=== PATIENT | male | born 1970 | race Caucasian/White ===

== ENCOUNTER 2018-03-11 09:22 | Inpatient (IN) | payer OTHER ==
[2018-03-11 09:58] VITALS: BMI 26.9
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
[2018-03-11] MEDS ORDERED: MAGNESIUM HYDROX 2400MG/30ML ORAL SUSPENSION 30 ML CUP PO PRN (13:50)
[2018-03-11] MEDS ORDERED: hydrOXYzine PAMOATE 25 MG CAPSULE (FP) PO PRN (13:50)
[2018-03-11] MEDS ORDERED: guaiFENesin/D-METHORPHAN HB 10 ML UNIT-DOSE CUPS PO PRN (13:50)
[2018-03-11] MEDS ORDERED: MAG HYDROX/AL HYDROX/SIMETH 30 ML UNIT-DOSE CUP PO PRN (13:50)
[2018-03-11] MEDS ORDERED: MENTHOL/PHENOL 1 EACH UD MM PRN (13:50)
[2018-03-11] MEDS ORDERED: LOPERAMIDE HCL 2 MG CAPSULE PO PRN (13:50)
[2018-03-11] MEDS ORDERED: chlordiazePOXIDE HCL 25 MG CAPSULE PO PRN (13:50)
[2018-03-11] MEDS ORDERED: P-EPHED 60MG/TRIPROLIDI 2.5MG TABLET PO PRN (13:50)
[2018-03-11] MEDS ORDERED: MAGNESIUM CITRATE 300 ML BOTTLE PO PRN (13:50)
[2018-03-11] MEDS ORDERED: ALBUTEROL SO4 8 GM HFA INHALER IH PRN (14:00)
[2018-03-11] MEDS ORDERED: METHADONE HCL 10 MG TABLET (FOR DETOX USE ONLY) PO ONE ×2 (14:15→23:00)
[2018-03-11 16:56] LABS: URINE APPEARANCE CLEAR; URINE BILIRUBIN NEGATIVE (<2.0 mg/dL); URINE COLOR YELLOW; URINE GLUCOSE (UA) NEGATIVE (NEGATIVE); URINE KETONE NEGATIVE (NEGATIVE); URINE LEUK ESTERASE NEGATIVE (NEGATIVE); URINE NITRITE NEGATIVE (NEGATIVE); URINE PROTEIN NEGATIVE (NEGATIVE); URINE UROBILINOGEN NEGATIVE mg/dL (0.2-1.0)
[2018-03-11] MEDS: chlordiazePOXIDE HCL 25 MG CAPSULE PO SCH ×2 (17:42→22:42)
[2018-03-11] MEDS: IBUPROFEN 400 MG TABLET (FP) PO PRN (18:24)
[2018-03-11] MEDS ORDERED: MELATONIN 5 MG TABLETS PO PRN (22:00)
[2018-03-11] MEDS: CYCLOBENZAPRINE HCL 10 MG TABLET (FP) PO PRN (22:42)
[2018-03-11] MEDS: cloNIDine HCL 0.1 MG TABLET PO SCH (22:42)
[2018-03-11] MEDS: THIAMINE HCL 100 MG TABLET (FP) PO SCH (22:42)
[2018-03-12] MEDS: chlordiazePOXIDE HCL 25 MG CAPSULE PO SCH ×4 (05:17→22:09)
[2018-03-12] MEDS ORDERED: METHADONE HCL 10 MG TABLET (FOR DETOX USE ONLY) PO SCH (10:00)
[2018-03-12 10:07] LABS: HEMATOCRIT 36.8 % (35.4-49); HEMOGLOBIN 12.1 GM/dL (11.7-16.9); MCH 27.4 pg (25.7-33.7); MCHC 32.8 g/dl (32.0-35.9); MEAN CELL VOLUME 83.4 fl (80-96); MEAN PLT VOLUME 9.5 fl (7.5-11.1); PLATELET COUNT 165 K/MM3 (134-434); RBC 4.42 M/mm3 (4.00-5.60); RDW 15.2 % (11.9-15.9); WHITE BLOOD COUNT 6.3 K/mm3 (4.0-10.0)
[2018-03-12 10:12] LABS: CHLORIDE 105 mmol/L (98-107); POTASSIUM 3.8 mmol/L (3.5-5.1); SODIUM 141 mmol/L (136-145)
[2018-03-12] MEDS: PRENATAL VITAMINS W/ FOLIC ACID TABLET (FP) PO SCH (10:14)
[2018-03-12] MEDS: cloNIDine HCL 0.1 MG TABLET PO SCH ×2 (10:14→22:09)
[2018-03-12] MEDS: ACETAMINOPHEN 325 MG TABLET (FP) PO PRN (10:15)
[2018-03-12 10:19] LABS: ALBUMIN 3.5 g/dl (3.4-5.0); ALK PHOS 307 U/L (45-117); ANION GAP 10 MMOL/L (8-16); BILIRUBIN,TOTAL 0.4 mg/dL (0.2-1.0); BLOOD UREA NITROGEN 21 mg/dL (7-18); CALCIUM 8.8 mg/dL (8.5-10.1); CO2 26 mmol/L (21-32); CREATININE 0.7 mg/dL (0.7-1.3); GLUCOSE,RANDOM 118 mg/dL (74-106); SGOT/AST 82 U/L (15-37); SGPT/ALT 170 U/L (12-78); TOT PROT 7.4 g/dl (6.4-8.2)
--- NOTE | 2018-03-12 10:44 | EKG ---
Test Reason : Blood Pressure : / mmHG Vent. Rate : 078 BPM Atrial Rate : 078 BPM P-R Int : 114 ms QRS Dur : 086 ms QT Int : 406 ms P-R-T Axes : 030 033 031 degrees QTc Int : 462 ms NORMAL SINUS RHYTHM NORMAL ECG NO PREVIOUS ECGS AVAILABLE Confirmed by SULLY HENSON, SCARLETT ([id number]) on 03/12/2018 10:44:02 AM Referred By: Confirmed By:SCARLETT VIRK MD
--- NOTE | 2018-03-12 13:34 | EKG ---
Test Reason : Blood Pressure : / mmHG Vent. Rate : 072 BPM Atrial Rate : 072 BPM P-R Int : 112 ms QRS Dur : 084 ms QT Int : 394 ms P-R-T Axes : 060 063 055 degrees QTc Int : 431 ms NORMAL SINUS RHYTHM WITH SINUS ARRHYTHMIA NORMAL ECG WHEN COMPARED WITH ECG OF 11-MAR-2018 14:27, NO SIGNIFICANT CHANGE WAS FOUND Confirmed by SCARLETT VIRK MD ([id number]) on 03/12/2018 1:33:38 PM Referred By: Confirmed By:SCARLETT VIRK MD
--- NOTE | 2018-03-12 15:14 | PN ---
[facility] CIWA - CIWA Score Nausea/Vomitin-No Nausea/No Vomiting Muscle Tremors: 3 Anxiety: 3 Agitation: 3 Paroxysmal Sweats: 3 Orientation: 0-Oriented Tacttile Disturbances: 2-Mild Itch/Numbness/Burn Auditory Disturbances: 0-None Visual Disturbances: 3-Moderate Sensitivity Headache: 0-None Present CIWA-Ar Total Score: 17 S COWS - Scale Resting Pulse: 0= [place] 80 or Below Sweatin= Chills/Flushing Restless Observation: 1= Difficult to Sit Still Pupil Size: 0= Normal to Room Light Bone or Joint Aches: 2= Severe Diffuse Aches Runny Nose/ Eye Tearin= None GI Upset > 30mins: 0= None Tremor Observation of Outstretched Hands: 2= Slight Tremor Visible Yawning Observation: 1= 1-2x During Session Anxiety or Irritability: 2=Irritable/Anxious Goose Flesh Skin: 3=Piloerection COWS Score: 12 S Progress Note (SOAP) Subjective: Body Aches, Sweating, Fatigue, Constipation, Tremors. Objective: PATIENT A & O X 3. NO ACUTE DISTRESS. 03/12/18 15:13 Vital Signs Temperature 97.9 F 03/12/18 14:28 Pulse Rate 76 03/12/18 14:28 Respiratory Rate 18 03/12/18 14:28 Blood Pressure 100/71 03/12/18 14:28 O2 Sat by Pulse Oximetry (%) Laboratory Tests 03/11/18 03/11/18 03/12/18 12:40 14:51 06:10 WBC 6.3 RBC 4.42 Hgb 12.1 Hct 36.8 MCV 83.4 MCH 27.4 MCHC 32.8 RDW 15.2 Plt Count 165 MPV 9.5 Sodium Potassium Chloride Carbon Dioxide Anion Gap BUN Creatinine Creat Clearance w eGFR Random Glucose Calcium Total Bilirubin AST ALT Alkaline Phosphatase Total Protein Albumin Urine Color Yellow Urine Appearance Clear Urine pH 5.0 Ur Specific [place] 1.018 Urine Protein Negative Urine Glucose (UA) Negative Urine Ketones Negative Urine Blood Negative Urine Nitrite Negative Urine Bilirubin Negative Urine Urobilinogen Negative Ur Leukocyte Esterase Negative RPR Titer HIV 1&2 Antibody Screen Negative HIV P24 Antigen Negative 03/12/18 03/12/18 06:10 06:10 WBC RBC Hgb Hct MCV MCH MCHC RDW Plt Count MPV Sodium 141 Potassium 3.8 Chloride 105 Carbon Dioxide 26 Anion Gap 10 BUN 21 H Creatinine 0.7 Creat Clearance w eGFR > 60 Random Glucose 118 H D Calcium 8.8 Total Bilirubin 0.4 AST 82 H D ALT 170 H D Alkaline Phosphatase 307 H Total Protein 7.4 Albumin 3.5 Urine Color Urine Appearance Urine pH Ur Specific [place] Urine Protein Urine Glucose (UA) Urine Ketones Urine Blood Urine Nitrite Urine Bilirubin Urine Urobilinogen Ur Leukocyte Esterase RPR Titer Nonreactive HIV 1&2 Antibody Screen HIV P24 Antigen LABS NOTED. Assessment: 03/12/18 15:14 WITHDRAWAL SYMPTOMS. Plan: CONTINUED ETOX. INCREASE DAILY PO FLUID INTAKE. HEPATIC FUNCTION PANEL ON 03/14/2018 FOR ABNORMAL ADMISSION HEPATIC FUNCTION VALUES.
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
[2018-03-12] MEDS: THIAMINE HCL 100 MG TABLET (FP) PO SCH (22:09)
[2018-03-12] MEDS: MIRTAZAPINE 15 MG TABLET (FP) PO SCH (22:09)
[2018-03-12] MEDS: CYCLOBENZAPRINE HCL 10 MG TABLET (FP) PO PRN (22:10)
[2018-03-13] MEDS: chlordiazePOXIDE HCL 25 MG CAPSULE PO SCH ×2 (05:12→10:14)
[2018-03-13] MEDS: METHADONE HCL 5 MG TABLET (FOR DETOX USE ONLY) PO SCH (10:14)
[2018-03-13] MEDS: cloNIDine HCL 0.1 MG TABLET PO SCH ×2 (10:14→22:21)
[2018-03-13] MEDS: LURASIDONE HCL 40 MG TABLET PO SCH (10:14)
[2018-03-13] MEDS: PRENATAL VITAMINS W/ FOLIC ACID TABLET (FP) PO SCH (10:15)
[2018-03-13] MEDS ORDERED: RANITIDINE HCL 150 MG TABLET (FP) PO ONE (15:26)
--- NOTE | 2018-03-13 15:29 | PN ---
[facility] CIWA - CIWA Score Nausea/Vomitin-No Nausea/No Vomiting Muscle Tremors: 3 Anxiety: 4-Mod. Anxious/Guarded Agitation: 3 Paroxysmal Sweats: No Perspiration Orientation: 2-Disoriented Date<2 days Tacttile Disturbances: 2-Mild Itch/Numbness/Burn Auditory Disturbances: 0-None Visual Disturbances: 0-None Headache: 0-None Present CIWA-Ar Total Score: 14 BHS COWS - Scale Resting Pulse: 1= [place] 81-100 Sweatin= No chills or Flushing Restless Observation: 1= Difficult to Sit Still Pupil Size: 0= Normal to Room Light Bone or Joint Aches: 2= Severe Diffuse Aches Runny Nose/ Eye Tearin= Nasal Congestion GI Upset > 30mins: 0= None Tremor Observation of Outstretched Hands: 2= Slight Tremor Visible Yawning Observation: 1= 1-2x During Session Anxiety or Irritability: 2=Irritable/Anxious Goose Flesh Skin: 3=Piloerection COWS Score: 13 S Progress Note (SOAP) Subjective: Fatigue, Tremors, Body Aches. Objective: PATIENT A & O X 2 (UNCERTAIN ABOUT CURRENT DAY / DATE). PATIENT OBSERVED AMBULATING ON UNIT. NO ACUTE DISTRESS. 03/13/18 15:28 Vital Signs Temperature 97.3 F L 03/13/18 13:55 Pulse Rate 92 H 03/13/18 13:55 Respiratory Rate 18 03/13/18 13:55 Blood Pressure 100/70 03/13/18 13:55 O2 Sat by Pulse Oximetry (%) Laboratory Tests 03/11/18 03/11/18 03/12/18 12:40 14:51 06:10 WBC 6.3 RBC 4.42 Hgb 12.1 Hct 36.8 MCV 83.4 MCH 27.4 MCHC 32.8 RDW 15.2 Plt Count 165 MPV 9.5 Sodium Potassium Chloride Carbon Dioxide Anion Gap BUN Creatinine Creat Clearance w eGFR Random Glucose Calcium Total Bilirubin AST ALT Alkaline Phosphatase Total Protein Albumin Urine Color Yellow Urine Appearance Clear Urine pH 5.0 Ur Specific [place] 1.018 Urine Protein Negative Urine Glucose (UA) Negative Urine Ketones Negative Urine Blood Negative Urine Nitrite Negative Urine Bilirubin Negative Urine Urobilinogen Negative Ur Leukocyte Esterase Negative RPR Titer HIV 1&2 Antibody Screen Negative HIV P24 Antigen Negative 03/12/18 03/12/18 06:10 06:10 WBC RBC Hgb Hct MCV MCH MCHC RDW Plt Count MPV Sodium 141 Potassium 3.8 Chloride 105 Carbon Dioxide 26 Anion Gap 10 BUN 21 H Creatinine 0.7 Creat Clearance w eGFR > 60 Random Glucose 118 H D Calcium 8.8 Total Bilirubin 0.4 AST 82 H D ALT 170 H D Alkaline Phosphatase 307 H Total Protein 7.4 Albumin 3.5 Urine Color Urine Appearance Urine pH Ur Specific [place] Urine Protein Urine Glucose (UA) Urine Ketones Urine Blood Urine Nitrite Urine Bilirubin Urine Urobilinogen Ur Leukocyte Esterase RPR Titer Nonreactive HIV 1&2 Antibody Screen HIV P24 Antigen LABS NOTED. Assessment: 03/13/18 15:28 WITHDRAWAL SYMPTOMS. Plan: CONTINUE DETOX. INCREASE DAILY PO FLUID INTAKE. HFP FOR TOMORROW AM.
[2018-03-13] MEDS: chlordiazePOXIDE 5 MG CAPSULE PO SCH ×2 (17:22→22:20)
[2018-03-13] MEDS: THIAMINE HCL 100 MG TABLET (FP) PO SCH (22:20)
[2018-03-13] MEDS: MIRTAZAPINE 15 MG TABLET (FP) PO SCH (22:21)
[2018-03-13] MEDS: CYCLOBENZAPRINE HCL 10 MG TABLET (FP) PO PRN (22:21)
[2018-03-14] MEDS: chlordiazePOXIDE 5 MG CAPSULE PO SCH ×2 (05:21→10:09)
[2018-03-14] MEDS: PRENATAL VITAMINS W/ FOLIC ACID TABLET (FP) PO SCH (10:07)
[2018-03-14] MEDS: LURASIDONE HCL 40 MG TABLET PO SCH (10:07)
[2018-03-14] MEDS: cloNIDine HCL 0.1 MG TABLET PO SCH ×2 (10:08→22:18)
[2018-03-14] MEDS: METHADONE HCL 5 MG TABLET (FOR DETOX USE ONLY) PO SCH (10:08)
[2018-03-14] MEDS: RANITIDINE HCL 150 MG TABLET (FP) PO SCH (10:09)
[2018-03-14] MEDS: NICOTINE POLACRILEX 2 MG GUM BUC PRN (10:11)
[2018-03-14 11:07] LABS: ALBUMIN 3.1 g/dl (3.4-5.0)
[2018-03-14 11:12] LABS: ALK PHOS 247 U/L (45-117); BILIRUBIN,DIRECT < 0.2 mg/dL (0.0-0.2); BILIRUBIN,TOTAL 0.3 mg/dL (0.2-1.0); SGPT/ALT 124 U/L (12-78); TOT PROT 7.1 g/dl (6.4-8.2)
[2018-03-14 11:29] LABS: SGOT/AST 45 U/L (15-37)
[2018-03-14] MEDS: chlordiazePOXIDE HCL 10 MG CAPSULE PO SCH ×2 (17:25→22:18)
[2018-03-14] MEDS: IBUPROFEN 400 MG TABLET (FP) PO PRN (17:26)
[2018-03-14] MEDS: ACETAMINOPHEN 325 MG TABLET (FP) PO PRN (20:10)
[2018-03-14] MEDS: CYCLOBENZAPRINE HCL 10 MG TABLET (FP) PO PRN (22:18)
[2018-03-14] MEDS: MIRTAZAPINE 15 MG TABLET (FP) PO SCH (22:18)
[2018-03-14] MEDS: THIAMINE HCL 100 MG TABLET (FP) PO SCH (22:18)
[2018-03-15] MEDS: IBUPROFEN 400 MG TABLET (FP) PO PRN ×2 (01:40→10:04)
[2018-03-15] MEDS: ACETAMINOPHEN 325 MG TABLET (FP) PO PRN ×2 (02:49→14:47)
[2018-03-15] MEDS: chlordiazePOXIDE HCL 10 MG CAPSULE PO SCH ×2 (05:11→10:01)
[2018-03-15] MEDS ORDERED: METHADONE HCL 10 MG TABLET (FOR DETOX USE ONLY) PO SCH (10:00)
[2018-03-15] MEDS: cloNIDine HCL 0.1 MG TABLET PO SCH ×2 (10:01→22:19)
[2018-03-15] MEDS: PRENATAL VITAMINS W/ FOLIC ACID TABLET (FP) PO SCH (10:01)
[2018-03-15] MEDS: LURASIDONE HCL 40 MG TABLET PO SCH (10:01)
[2018-03-15] MEDS: RANITIDINE HCL 150 MG TABLET (FP) PO SCH (10:01)
--- NOTE | 2018-03-15 17:32 | PN ---
BHS Progress Note (SOAP) Subjective: pt states he is feeling fine now- better than when he came in obj: Vital Signs - 24 hr 03/14/18 03/14/18 03/15/18 21:05 22:18 00:30 Temperature 100.7 F H 97.3 F L Pulse Rate 96 H Respiratory 18 18 Rate Blood Pressure 122/76 03/15/18 03/15/18 03/15/18 03:30 06:19 11:15 Temperature 96.1 F L 97.0 F L Pulse Rate 79 91 H Respiratory 18 18 18 Rate Blood Pressure 127/81 117/85 03/15/18 14:44 Temperature 97.3 F L Pulse Rate 85 Respiratory 18 Rate Blood Pressure 111/79 Laboratory Tests 03/11/18 03/11/18 03/12/18 12:40 14:51 06:10 WBC 6.3 RBC 4.42 Hgb 12.1 Hct 36.8 MCV 83.4 MCH 27.4 MCHC 32.8 RDW 15.2 Plt Count 165 MPV 9.5 Sodium Potassium Chloride Carbon Dioxide Anion Gap BUN Creatinine Creat Clearance w eGFR Random Glucose Calcium Total Bilirubin Direct Bilirubin AST ALT Alkaline Phosphatase Total Protein Albumin Urine Color Yellow Urine Appearance Clear Urine pH 5.0 Ur Specific [place] 1.018 Urine Protein Negative Urine Glucose (UA) Negative Urine Ketones Negative Urine Blood Negative Urine Nitrite Negative Urine Bilirubin Negative Urine Urobilinogen Negative Ur Leukocyte Esterase Negative RPR Titer HIV 1&2 Antibody Screen Negative HIV P24 Antigen Negative 03/12/18 03/12/18 03/14/18 06:10 06:10 07:00 WBC RBC Hgb Hct MCV MCH MCHC RDW Plt Count MPV Sodium 141 Potassium 3.8 Chloride 105 Carbon Dioxide 26 Anion Gap 10 BUN 21 H Creatinine 0.7 Creat Clearance w eGFR > 60 Random Glucose 118 H D Calcium 8.8 Total Bilirubin 0.4 0.3 Direct Bilirubin < 0.2 AST 82 H D 45 H D ALT 170 H D 124 H D Alkaline Phosphatase 307 H 247 H D Total Protein 7.4 7.1 Albumin 3.5 3.1 L Urine Color Urine Appearance Urine pH Ur Specific [place] Urine Protein Urine Glucose (UA) Urine Ketones Urine Blood Urine Nitrite Urine Bilirubin Urine Urobilinogen Ur Leukocyte Esterase RPR Titer Nonreactive HIV 1&2 Antibody Screen HIV P24 Antigen increased liver enzymes- decreasing since admission Ass: here for xanax and heroin withdrawal- continue detox protocol
[2018-03-15] MEDS: NICOTINE POLACRILEX 2 MG GUM BUC PRN (17:38)
[2018-03-15] MEDS: THIAMINE HCL 100 MG TABLET (FP) PO SCH (22:19)
[2018-03-15] MEDS: CYCLOBENZAPRINE HCL 10 MG TABLET (FP) PO PRN (22:19)
[2018-03-15] MEDS: MIRTAZAPINE 15 MG TABLET (FP) PO SCH (22:20)
[2018-03-16] MEDS: IBUPROFEN 400 MG TABLET (FP) PO PRN (00:39)
[2018-03-16] MEDS: ACETAMINOPHEN 325 MG TABLET (FP) PO PRN ×2 (04:06→10:10)
[2018-03-16] MEDS ORDERED: METHADONE HCL 5 MG TABLET (FOR DETOX USE ONLY) PO SCH (06:00)
[2018-03-16] MEDS: PRENATAL VITAMINS W/ FOLIC ACID TABLET (FP) PO SCH (10:09)
[2018-03-16] MEDS: cloNIDine HCL 0.1 MG TABLET PO SCH (10:09)
[2018-03-16] MEDS: RANITIDINE HCL 150 MG TABLET (FP) PO SCH (10:09)
[2018-03-16] MEDS: LURASIDONE HCL 40 MG TABLET PO SCH (10:10)
--- NOTE | 2018-03-16 10:49 | PN ---
BHS Progress Note (SOAP) Subjective: without complaints, leaving detox today, would like to go to rehab plan: d/c from detox today
--- NOTE | 2018-03-16 10:52 | DS ---
[facility] Detox Discharge Summary Admission Date: 03/11/18 Discharge Date: 03/16/18 - History Present History: Alcohol Dependence, Cocaine Dependence, Sedative Dependence Additional Comments: 47 years old male with heroin,alcohol,cocaine and xanax dependence,completed alcohol detox-without issues, nicotine dependence hepatitis c bipolar disorder - Physical Exam Results Vital Signs: Vital Signs Temperature 97.2 F L 03/16/18 06:02 Pulse Rate 72 03/16/18 06:02 Respiratory Rate 18 03/16/18 06:02 Blood Pressure 110/74 03/16/18 06:02 O2 Sat by Pulse Oximetry (%) Pertinent Admission Physical Exam Findings: pt states has meds at home- does not need reorder of meds - Treatment Hospital Course: Detox Protocol Followed, Detoxed Safely, Responded well, Discharged Condition Good, Rehab Referral Accepted Patient has Accepted a Rehab Referral to: awaiting rehab beds - Medication Discharge Medications: Ambulatory Orders Albuterol Sulfate Inhaler - [Ventolin HFA Inhaler -] 2 inh PO Q4H PRN #1 inh 12/27 Omeprazole [Prilosec] 40 mg PO DAILY #30 capsule.dr 01/17/15 Gabapentin 800 mg PO Q8H 03/11/18 Lurasidone HCl [Latuda -] 60 mg PO DAILY 03/11/18 Mirtazapine [Remeron -] 15 mg PO HS 03/11/18 Zolpidem Tartrate [Ambien] 10 mg PO HS 03/11/18 - Diagnosis (1) Alcohol dependence with uncomplicated withdrawal Current Visit: Yes Status: Acute (2) Nicotine dependence Current Visit: Yes Status: Acute Qualifiers: Nicotine product type: cigarettes Substance use status: uncomplicated Qualified Code(s): F17.210 - Nicotine dependence, cigarettes, uncomplicated (3) Opioid dependence with withdrawal Current Visit: Yes Status: Acute
[2018-03-16 11:06] VITALS: BP 113/88; PULSE 81; TEMP 97
== END 2018-03-16 12:14 | disposition other institution (70) | DRG 897 ==
LOC: YASAS 09:22 → Y3N 13:47
PROC: HZ2ZZZZ Detoxification Services for Substance Abuse Treatment (ICD-10-PCS; principal; 2018-03-11)
DX: F11.23 Opioid dependence with withdrawal (principal); F14.20 Cocaine dependence, uncomplicated; F10.230 Alcohol dependence with withdrawal, uncomplicated; F13.230 Sedative, hypnotic or anxiolytic dependence with withdrawal, uncomplicated; F17.210 Nicotine dependence, cigarettes, uncomplicated; F31.9 Bipolar disorder, unspecified; F19.24 Other psychoactive substance dependence with psychoactive substance-induced mood disorder; J45.20 Mild intermittent asthma, uncomplicated; E78.00 Pure hypercholesterolemia, unspecified; B18.2 Chronic viral hepatitis C; K21.9 Gastro-esophageal reflux disease without esophagitis; R63.4 Abnormal weight loss; Z68.27 Body mass index [BMI] 27.0-27.9, adult; Z91.5 Personal history of self-harm
CPT/HCPCS: 36415; 80053; 80076; 81003; 85027; 86593; 87389; 93005; 93010; J0735

== ENCOUNTER 2018-08-10 21:13 | Inpatient (IN) | payer OTHER ==
[2018-08-10] MEDS ORDERED: MELATONIN 5 MG TABLETS PO PRN (22:00)
[2018-08-10 22:15] VITALS: BMI 23.0
--- NOTE | 2018-08-10 22:20 | HP ---
CIWA Score Nausea/Vomitin-No Nausea/No Vomiting Muscle Tremors: 1-None Visible, but [place] Anxiety: 4-Mod. Anxious/Guarded Agitation: 4-Moderately Restless Paroxysmal Sweats: 3 Orientation: 2-Disoriented Date<2 days Tacttile Disturbances: 0-None Auditory Disturbances: 0-None Visual Disturbances: 0-None Headache: 3-Moderate CIWA-Ar Total Score: 17 - Admission Criteria OASAS Guidelines: Admission for Medically Managed Detox: Requires at least one of the followin. CIWA greater than 12 2. Seizures within the past 24 hours 3. Delirium tremens within the past 24 hours 4. Hallucinations within the past 24 hours 5. Acute intervention needed for co occurring medical disorder 6. Acute intervention needed for co occurring psychiatric disorder 7. Severe withdrawal that cannot be handled at a lower level of care (continued vomiting, continued diarrhea, abnormal vital signs) requiring intravenous medication and/or fluids 8. Patient presents the following: CIWA greater than 12, Seizures, delirium tremens or hallucinations in the past 12 hours, Acute intervention needed for co -occurring med or psych disorder Admission Criteria Met: Admission criteria met Admission ROS [facility] Chief Complaint: c/o worsening withdrawal sx's. seeking detox txment Allergies/Adverse Reactions: Allergies Allergy/AdvReac Type Severity Reaction Status Date / Time No Known Allergies Allergy Verified 08/10/18 21:54 History of Present Illness: 48 Y.O. 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 CLIENT IS KNOWN TO THIS PROGRAM. SELF REFERRED. PRESENTS WITH C/O WORSENING WITHDRAWAL SX'S. CIWA 17. 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 DENIES ANY CLEAN TIME IN THE PAST YEAR. HE REPORTS HE IS ON METHADONE 70 MG FROM [facility]. DENIES HX/O SI/HI, AVH, SEIZURE D/O. REPORTS HX/O BLACKING OUT/ LAST EPISODE LESS THAN 12 HOURS AGO. LIVES ALONE, SSI, DENIES LEGALS. PMHX- HLD, HEPC, ASTHMA PSYCH- BIPOLAR, DEPRESSION Exam Limitations: No Limitations - Ebola screening Have you traveled outside of the country in the last 21 days: No (N) Have you had contact with anyone from an Ebola affected area: No Do you have a fever: No - Review of Systems Constitutional: Chills, Loss of Appetite, Night Sweats, Changes in sleep EENT: reports: Dental Problems (MISSING TEETH) Respiratory: reports: No Symptoms reported Cardiac: reports: No Symptoms Reported GI: reports: Constipated, Poor Appetite, Poor Fluid Intake : reports: No Symptoms Reported Musculoskeletal: reports: Joint Pain Integumentary: reports: Flushing, Sweating Neuro: reports: No Symptoms reported Endocrine: reports: No Symptoms Reported Hematology: reports: Other Psychiatric: reports: Orientated x3, Anxious, Depressed Other Systems: Reviewed and Negative Patient History - Patient Medical History Hx Anemia: No Hx Asthma: Yes Hx Chronic Obstructive Pulmonary Disease (COPD): No Hx Cancer: No Hx Cardiac Disorders: No Hx Congestive Heart Failure: No Hx Hypertension: No Hx Hypercholesterolemia: Yes (TOOK MED FOR ONE MONTH no med now) Hx Pacemaker: No HX Cerebrovascular Accident: No Hx Seizures: No Hx Dementia: No Hx Diabetes: No Hx Gastrointestinal Disorders: No Hx Liver Disease: Yes Hx Genitourinary Disorders: No Hx Sexually Transmitted Disorders: No Hx Renal Disease (ESRD): No Hx Thyroid Disease: No Hx Human Immunodeficiency Virus (HIV): No Hx Hepatitis C: Yes Hx Depression: Yes Hx Suicide Attempt: No Hx Bipolar Disorder: Yes (SEROQUEL) Hx Schizophrenia: No - Patient Surgical History Past Surgical History: Yes Hx Neurologic Surgery: No Hx Cataract Extraction: No Hx Cardiac Surgery: No Hx Lung Surgery: No Hx Breast Surgery: No Hx Breast Biopsy: No Hx Abdominal Surgery: No Hx Appendectomy: No Hx Cholecystectomy: No Hx Genitourinary Surgery: No Hx Section: No Hx Orthopedic Surgery: No Other Surgical History: LEFT ORBIT WITH METAL PLATE IN 1992 Anesthesia Reaction: No - PPD History Previous Implant?: Yes Documented Results: Negative w/proof Implanted On Prior [facility] Admission?: Yes Date: 03/13/18 Results: 0 mm PPD to be Administered?: No - Smoking Cessation Smoking history: Current every day smoker Have you smoked in the past 12 months: Yes Aproximately how many cigarettes per day: 20 Cigars Per Day: 0 Hx Chewing Tobacco Use: No Initiated information on smoking cessation: Yes 'Breaking Loose' booklet given: 08/10/18 - Substance & Tx. History Hx Alcohol Use: Yes Hx Substance Use: Yes Substance Use Type: Alcohol, Cocaine, Heroin, Prescribed ([facility]) Hx Substance Use Treatment: Yes ([facility]) - Substances Abused Alcohol Route: Oral Frequency: Daily Amount used: 40 OZ BEER Age of first use: 14 Date of Last Use: 08/10/18 Heroin Route: Injection Frequency: Daily Amount used: 10 BAGS Age of first use: 21 Date of Last Use: 08/10/18 Cocaine Route: Smoking Frequency: Daily Amount used: 5BAGS $20 Age of first use: 18 Date of Last Use: 08/10/18 Family Disease History - Family Disease History Family Disease History: Diabetes: Grandparent (HTN), Heart Disease: Grandparent , Other: Father (ALCOHOLIC IN REMISSION) Admission Physical Exam [facility] - Physical General Appearance: Yes: Appropriately Dressed, Mild Distress, Tremorous (FELT) , Sweating (FLUSHED), Anxious HEENTM: Yes: EOMI, Normocephalic, Normal Voice, DAPHNE, Pharynx Normal, Other ( MISSING TEETH) Respiratory: Yes: Chest Non-Tender, Lungs Clear, Normal Breath Sounds, No Respiratory Distress, No Accessory Muscle Use Neck: Yes: No masses,lesions,Nodules, Supple, Trachea in good position Breast: Yes: Breast Exam Deferred Cardiology: Yes: Regular Rhythm, Regular Rate, S1, S2 Abdominal: Yes: Normal Bowel Sounds, Non Tender, Flat, Soft Genitourinary: Yes: Other (NO C/O) Back: Yes: Normal Inspection Musculoskeletal: Yes: full range of Motion, Gait Steady Extremities: Yes: Normal Capillary Refill, Normal Range of Motion, Non-Tender, Tremors Neurological: Yes: weatherization administrator II-XII NML intact, Fully Oriented, Alert, Motor Strength 5/5, Depressed Affect Integumentary: Yes: Cold, Moist, Track [place], Other (FLUSHED) Lymphatic: Yes: Within Normal Limits - Diagnostic (1) Methadone maintenance therapy patient Current Visit: Yes Status: Chronic (2) Alcohol dependence with uncomplicated withdrawal Current Visit: Yes Status: Acute (3) Cocaine dependence Current Visit: Yes Status: Acute Qualifiers: Substance use status: uncomplicated Qualified Code(s): F14.20 - Cocaine dependence, uncomplicated Comment: . (4) Drug-induced mood disorder Current Visit: Yes Status: Chronic Comment: . (5) Nicotine dependence Current Visit: Yes Status: Chronic Qualifiers: Nicotine product type: cigarettes Substance use status: uncomplicated Qualified Code(s): F17.210 - Nicotine dependence, cigarettes, uncomplicated Comment: . (6) Asthma Current Visit: Yes Status: Chronic Qualifiers: Asthma severity: mild Asthma persistence: intermittent Asthma complication type: uncomplicated Qualified Code(s): J45.20 - Mild intermittent asthma, uncomplicated (7) Bipolar disorder Current Visit: Yes Status: Chronic Qualifiers: Active/Remission status: remission status unspecified Qualified Code(s): F31.9 - Bipolar disorder, unspecified Comment: . (8) Gastroesophageal reflux disease Current Visit: Yes Status: Chronic Qualifiers: Esophagitis presence: without esophagitis Qualified Code(s): K21.9 - Gastro -esophageal reflux disease without esophagitis (9) Hepatitis C Current Visit: Yes Status: Chronic Qualifiers: Viral hepatitis chronicity: chronic Hepatic coma status: without hepatic coma Qualified Code(s): B18.2 - Chronic viral hepatitis C Cleared for Admission [facility] - Detox or Rehab [facility] Level of Care: Medically Managed Detox Regimen/Protocol: Librium Claeared for Rehab Admission: No [facility] Breath Alcohol Content Breath Alcohol Content: 0
[2018-08-10] MEDS ORDERED: MAGNESIUM CITRATE 300 ML BOTTLE PO PRN (22:45)
[2018-08-10] MEDS ORDERED: guaiFENesin/D-METHORPHAN HB 10 ML UNIT-DOSE CUPS PO PRN (22:45)
[2018-08-10] MEDS ORDERED: LOPERAMIDE HCL 2 MG CAPSULE PO PRN (22:45)
[2018-08-10] MEDS ORDERED: MAGNESIUM HYDROX 2400MG/30ML ORAL SUSPENSION 30 ML CUP PO PRN (22:45)
[2018-08-10] MEDS ORDERED: MENTHOL/PHENOL 1 EACH UD MM PRN (22:45)
[2018-08-10] MEDS ORDERED: chlordiazePOXIDE HCL 25 MG CAPSULE PO PRN (22:45)
[2018-08-10] MEDS ORDERED: P-EPHED 60MG/TRIPROLIDI 2.5MG TABLET PO PRN (22:45)
[2018-08-10] MEDS ORDERED: MAG HYDROX/AL HYDROX/SIMETH 30 ML UNIT-DOSE CUP PO PRN (22:45)
[2018-08-10] MEDS ORDERED: NICOTINE POLACRILEX 2 MG GUM BC PRN (22:45)
[2018-08-10] MEDS ORDERED: hydrOXYzine PAMOATE 50 MG CAPSULE (FP) PO PRN (22:45)
[2018-08-10] MEDS ORDERED: ACETAMINOPHEN 325 MG TABLET (FP) PO PRN (22:45)
[2018-08-10] MEDS ORDERED: ALBUTEROL SO4 8 GM HFA INHALER IH PRN (22:48)
[2018-08-11] MEDS: chlordiazePOXIDE HCL 25 MG CAPSULE PO SCH ×5 (00:30→22:20)
--- NOTE | 2018-08-11 07:33 | CONSULT ---
[facility] Psychiatric Consult - Data Date of interview: 08/11/18 Admission source: [facility] Identifying data: This is a 48 year4s old male, single, childless, unemployed, living alone, on SSI, [place] support, with history of Bipolar Disorder, with psychiatric hospitalization history, is here due to Alcohol, Heroin, Cocaine and Nicotine dependence/ abuse, is reportinf withdrawal symptoms and seeking detox. Substance Abuse History: Smoking history: Current every day smoker. Have you smoked in the past 12 months: Yes. Aproximately how many cigarettes per day: 20. Cigars Per Day: 0. Hx Chewing Tobacco Use: No. Initiated information on smoking cessation: Yes. 'Breaking Loose' booklet given: 08/10/18. - Substance & Tx. History. Hx Alcohol Use: Yes. Hx Substance Use: Yes. Substance Use Type : Alcohol, Cocaine, Heroin, Prescribed ([facility]). Hx Substance Use Treatment: Yes ( [facility]). - Substances Abused. Alcohol. Route: Oral. Frequency: Daily. Amount used: 40 OZ BEER. Age of first use: 14. Date of Last Use: 08/10/18. * * Heroin. Route: Injection. Frequency: Daily. Amount used: 10 BAGS. Age of first use: 21. Date of Last Use: 08/10/18. Cocaine. Route: Smoking. Frequency: Daily. Amount used: 5BAGS $20. Age of first use: 18. Date of Last Use: 08/10/18. Family Disease History Medical History: Asthma, GERD, HepC+, Weight loss history, Arthritis, Head trauma history, MMTP history. Psychiatric History: Patient reports history of Bipolar Disorder with most recent psychiatric admission on 2018 at [facility] for [facility]. currently reports taking: Doxepin 25mg po qhs. Remeron 15mg po qhs. Denies suicidal, homicdial history. Physical/Sexual Abuse/Trauma History: Denies Additional Comment: Doxepin 25mg po qhs. Remeron 15mg po qhs Mental Status Exam - Mental Status Exam Alert and Oriented to: Person Cognitive Function: Fair Patient Appearance: Unkempt Mood: Sad Affect: Flat Patient Behavior: Sedated Speech Pattern: Delayed Voice Loudness: Mildly Soft/Quiet Thought Process: Circumstantial Thought Disorder: Being Controlled Hallucinations: Denies Suicidal Ideation: Denies Homicidal Ideation: Denies Insight/Judgement: Fair Sleep: Difficulty falling asleep Appetite: Weight loss Muscle strength/Tone: Mild Hypotonicity Gait/Station: Shuffling Additional Comments: Doxepin 25mg po qhs. Remeron 15mg po qhs Psychiatric Findings - Problem List ([place] 1, 2,3) (1) Alcohol dependence with uncomplicated withdrawal Current Visit: Yes Status: Acute (2) Cocaine dependence Current Visit: Yes Status: Acute Qualifiers: Substance use status: uncomplicated Qualified Code(s): F14.20 - Cocaine dependence, uncomplicated Comment: . (3) Bipolar disorder Current Visit: Yes Status: Chronic Qualifiers: Active/Remission status: remission status unspecified Qualified Code(s): F31.9 - Bipolar disorder, unspecified Comment: . (4) Drug-induced mood disorder Current Visit: Yes Status: Chronic Comment: . (5) Gastroesophageal reflux disease Current Visit: Yes Status: Chronic Qualifiers: Esophagitis presence: without esophagitis Qualified Code(s): K21.9 - Gastro -esophageal reflux disease without esophagitis (6) Hepatitis C Current Visit: Yes Status: Chronic Qualifiers: Viral hepatitis chronicity: chronic Hepatic coma status: without hepatic coma Qualified Code(s): B18.2 - Chronic viral hepatitis C (7) Nicotine dependence Current Visit: Yes Status: Chronic Qualifiers: Nicotine product type: cigarettes Substance use status: uncomplicated Qualified Code(s): F17.210 - Nicotine dependence, cigarettes, uncomplicated Comment: . (8) Alcohol dependence Current Visit: No Status: Acute Comment: . 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 (12) Weight loss Current Visit: No Status: Acute (13) Alcohol dependence, continuous Current Visit: No Status: Chronic (14) Arthritis Current Visit: No Status: Chronic (15) Cocaine dependence Current Visit: No Status: Chronic Qualifiers: Substance use status: uncomplicated Qualified Code(s): F14.20 - Cocaine dependence, uncomplicated (16) Heroin dependence Current Visit: No Status: Chronic Comment: . 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 Remeron 15mg po qhs
[2018-08-11] MEDS ORDERED: METHADONE HCL 10 MG TABLET PO ONE (08:54)
[2018-08-11] MEDS ORDERED: METHADONE 40 MG, METHADONE 30 MG PO ONE (09:05)
[2018-08-11] MEDS: IBUPROFEN 400 MG TABLET (FP) PO PRN (09:10)
[2018-08-11 09:45] LABS: HEMATOCRIT 35.3 % (35.4-49); HEMOGLOBIN 12.4 GM/dL (11.7-16.9); MCH 28.9 pg (25.7-33.7); MEAN CELL VOLUME 82.7 fl (80-96); MEAN PLT VOLUME 9.4 fl (7.5-11.1); PLATELET COUNT 148 K/MM3 (134-434); RBC 4.28 M/mm3 (4.00-5.60); WHITE BLOOD COUNT 6.9 K/mm3 (4.0-10.0)
[2018-08-11] MEDS ORDERED: METHADONE HCL 40 MG DISPERSABLE TABLET ONE ×2 (09:54→10:00)
[2018-08-11 09:57] LABS: ALBUMIN 3.3 g/dl (3.4-5.0); ALK PHOS 203 U/L (45-117); ANION GAP 7 MMOL/L (8-16); BILIRUBIN,TOTAL 0.6 mg/dL (0.2-1); BLOOD UREA NITROGEN 20 mg/dL (7-18); CALCIUM 8.4 mg/dL (8.5-10.1); CHLORIDE 108 mmol/L (98-107); CO2 26 mmol/L (21-32); GLUCOSE,RANDOM 109 mg/dL (74-106); POTASSIUM 3.6 mmol/L (3.5-5.1); SGOT/AST 36 U/L (15-37); SGPT/ALT 69 U/L (13-61); SODIUM 142 mmol/L (136-145); TOT PROT 7.1 g/dl (6.4-8.2)
[2018-08-11] MEDS ORDERED: METHADONE HCL 10 MG TABLET ONE (10:00)
[2018-08-11] MEDS: PRENATAL VITAMINS W/ FOLIC ACID TABLET (FP) PO SCH (10:18)
[2018-08-11] MEDS: NICOTINE 14 MG/24 HOURS TOPICAL PATCH TD SCH (10:19)
[2018-08-11] MEDS: DOXEPIN HCL 25 MG CAPSULE PO SCH (10:20)
--- NOTE | 2018-08-11 12:39 | PN ---
[facility] CIWA - CIWA Score Nausea/Vomitin-No Nausea/No Vomiting Muscle Tremors: 3 Anxiety: 4-Mod. Anxious/Guarded Agitation: 0-Normal Activity Paroxysmal Sweats: 2 Orientation: 2-Disoriented Date<2 days Tacttile Disturbances: 2-Mild Itch/Numbness/Burn Auditory Disturbances: 0-None Visual Disturbances: 1-Very Mild Sensitivity Headache: 0-None Present CIWA-Ar Total Score: 14 S Progress Note (SOAP) Subjective: Anxious, Tremors, Sweating. Objective: PATIENT A & O X 2 (UNCERTAIN ABOUT CURRENT DAY / DATE). PATIENT OBSERVED AMBULATING ON UNIT. IN NO ACUTE DISTRESS. 08/11/18 12:41 Vital Signs Temperature 99.1 F 08/11/18 09:26 Pulse Rate 83 08/11/18 09:26 Respiratory Rate 16 08/11/18 09:26 Blood Pressure 118/67 08/11/18 09:26 O2 Sat by Pulse Oximetry (%) Laboratory Tests 08/11/18 08/11/18 07:00 07:00 WBC 6.9 RBC 4.28 Hgb 12.4 Hct 35.3 L MCV 82.7 MCH 28.9 MCHC 35.0 RDW 15.0 Plt Count 148 MPV 9.4 Sodium 142 Potassium 3.6 Chloride 108 H Carbon Dioxide 26 Anion Gap 7 L BUN 20 H Creatinine 1.0 Creat Clearance w eGFR > 60 Random Glucose 109 H Calcium 8.4 L Total Bilirubin 0.6 AST 36 ALT 69 H Alkaline Phosphatase 203 H Total Protein 7.1 Albumin 3.3 L LABS NOTED. RPR RESULT PENDING. 08/11/18 12:44 Assessment: 08/11/18 12:42 WITHDRAWAL SYMPTOMS. Plan: CONTINUE DETOX. INCREASE DAILY PO FLUID INTAKE. REPEAT ALK. PHOS. ON 08/11/2018 FOR ELEVATED ADMISSION LEVEL.
[2018-08-11] MEDS: THIAMINE HCL 100 MG TABLET (FP) PO SCH (22:20)
[2018-08-11] MEDS: MIRTAZAPINE 15 MG TABLET (FP) PO SCH (22:21)
[2018-08-12] MEDS ORDERED: METHADONE HCL 10 MG TABLET ONE (05:29)
[2018-08-12] MEDS ORDERED: METHADONE HCL 40 MG DISPERSABLE TABLET ONE (05:29)
[2018-08-12] MEDS: chlordiazePOXIDE HCL 25 MG CAPSULE PO SCH ×3 (05:50→17:50)
[2018-08-12] MEDS: METHADONE 40 MG, METHADONE 30 MG PO SCH (05:51)
[2018-08-12] MEDS ORDERED: METHADONE HCL 40 MG DISPERSABLE TABLET PO SCH (06:00)
[2018-08-12] MEDS: NICOTINE 14 MG/24 HOURS TOPICAL PATCH TD SCH (10:09)
[2018-08-12] MEDS: PRENATAL VITAMINS W/ FOLIC ACID TABLET (FP) PO SCH (10:09)
[2018-08-12] MEDS: DOXEPIN HCL 25 MG CAPSULE PO SCH (10:09)
--- NOTE | 2018-08-12 14:03 | PN ---
S CIWA - CIWA Score Nausea/Vomitin-No Nausea/No Vomiting Muscle Tremors: 3 Anxiety: 0-No Anxiety, at Ease Agitation: 0-Normal Activity Paroxysmal Sweats: 3 Orientation: 2-Disoriented Date<2 days Tacttile Disturbances: 2-Mild Itch/Numbness/Burn Auditory Disturbances: 0-None Visual Disturbances: 0-None Headache: 3-Moderate CIWA-Ar Total Score: 13 B[facility] Progress Note (SOAP) Subjective: Tremors, Constipation, Body Aches, Fatigue, Sweating, H/A. Objective: PATIENT A & O X 2 (UNCERTAIN ABOUT CURRENT DAY / DATE). IN NO ACUTE DISTRESS. 08/12/18 14:01 Vital Signs Temperature 97.9 F 08/12/18 13:33 Pulse Rate 71 08/12/18 13:33 Respiratory Rate 18 08/12/18 13:33 Blood Pressure 103/52 L 08/12/18 13:33 O2 Sat by Pulse Oximetry (%) Laboratory Tests 08/11/18 08/11/18 08/11/18 07:00 07:00 07:00 WBC 6.9 RBC 4.28 Hgb 12.4 Hct 35.3 L MCV 82.7 MCH 28.9 MCHC 35.0 RDW 15.0 Plt Count 148 MPV 9.4 Sodium 142 Potassium 3.6 Chloride 108 H Carbon Dioxide 26 Anion Gap 7 L BUN 20 H Creatinine 1.0 Creat Clearance w eGFR > 60 Random Glucose 109 H Calcium 8.4 L Total Bilirubin 0.6 AST 36 ALT 69 H Alkaline Phosphatase 203 H Total Protein 7.1 Albumin 3.3 L RPR Titer Nonreactive LABS NOTED. Assessment: 08/12/18 14:01 WITHDRAWAL SYMPTOMS. Plan: CONTINUE DETOX. INCREASE DAILY PO FLUID INTAKE. REPEAT ALK. PHOS. LEVEL ORDERED FOR TOMORROW AM.
[2018-08-12] MEDS: chlordiazePOXIDE 5 MG CAPSULE PO SCH (22:37)
[2018-08-12] MEDS: THIAMINE HCL 100 MG TABLET (FP) PO SCH (22:38)
[2018-08-12] MEDS: MIRTAZAPINE 15 MG TABLET (FP) PO SCH (22:38)
[2018-08-13] MEDS ORDERED: METHADONE HCL 40 MG DISPERSABLE TABLET ONE (04:42)
[2018-08-13] MEDS ORDERED: METHADONE HCL 10 MG TABLET ONE (04:43)
[2018-08-13] MEDS: METHADONE 40 MG, METHADONE 30 MG PO SCH (06:34)
[2018-08-13] MEDS: chlordiazePOXIDE 5 MG CAPSULE PO SCH ×3 (06:35→18:15)
[2018-08-13] MEDS: NICOTINE 14 MG/24 HOURS TOPICAL PATCH TD SCH (10:51)
[2018-08-13] MEDS: PRENATAL VITAMINS W/ FOLIC ACID TABLET (FP) PO SCH (10:51)
[2018-08-13] MEDS: DOXEPIN HCL 25 MG CAPSULE PO SCH (10:51)
[2018-08-13] MEDS: IBUPROFEN 400 MG TABLET (FP) PO PRN (10:57)
[2018-08-13 12:53] LABS: URINE APPEARANCE SLCLOUDY; URINE BILIRUBIN NEGATIVE (<2.0 mg/dL); URINE GLUCOSE (UA) NEGATIVE (NEGATIVE); URINE KETONE NEGATIVE (NEGATIVE); URINE LEUK ESTERASE NEGATIVE (NEGATIVE); URINE NITRITE NEGATIVE (NEGATIVE); URINE PROTEIN NEGATIVE (NEGATIVE)
[2018-08-13 13:22] LABS: URINE COLOR DK YELLOW
--- NOTE | 2018-08-13 15:10 | PN ---
[facility] Progress Note (SOAP) Subjective: Pt doing well. On MAT methadone and on alcohol detox protocol O: Vital Signs - 24 hr 08/12/18 08/12/18 08/12/18 18:01 21:01 22:38 Temperature 97.6 F 97.8 F Pulse Rate 77 82 88 Respiratory 18 19 18 Rate Blood Pressure 99/55 L 98/52 L 128/72 08/13/18 08/13/18 08/13/18 00:30 03:30 08:10 Temperature 97.9 F Pulse Rate 79 Respiratory 18 18 18 Rate Blood Pressure 114/65 08/13/18 08/13/18 09:17 13:46 Temperature 98.3 F 98.1 F Pulse Rate 100 H 93 H Respiratory 18 18 Rate Blood Pressure 114/76 110/67 Laboratory Tests 08/11/18 08/11/18 08/11/18 07:00 07:00 07:00 WBC 6.9 RBC 4.28 Hgb 12.4 Hct 35.3 L MCV 82.7 MCH 28.9 MCHC 35.0 RDW 15.0 Plt Count 148 MPV 9.4 Sodium 142 Potassium 3.6 Chloride 108 H Carbon Dioxide 26 Anion Gap 7 L BUN 20 H Creatinine 1.0 Creat Clearance w eGFR > 60 Random Glucose 109 H Calcium 8.4 L Total Bilirubin 0.6 AST 36 ALT 69 H Alkaline Phosphatase 203 H Total Protein 7.1 Albumin 3.3 L Urine Color Urine Appearance Urine pH Ur Specific [place] Urine Protein Urine Glucose (UA) Urine Ketones Urine Blood Urine Nitrite Urine Bilirubin Urine Urobilinogen Ur Leukocyte Esterase RPR Titer Nonreactive 08/13/18 08/13/18 07:00 10:40 WBC RBC Hgb Hct MCV MCH MCHC RDW Plt Count MPV Sodium Potassium Chloride Carbon Dioxide Anion Gap BUN Creatinine Creat Clearance w eGFR Random Glucose Calcium Total Bilirubin AST ALT Alkaline Phosphatase 184 H Total Protein Albumin Urine Color Dk yellow Urine Appearance Slcloudy Urine pH 5.0 Ur Specific [place] 1.032 Urine Protein Negative Urine Glucose (UA) Negative Urine Ketones Negative Urine Blood Negative Urine Nitrite Negative Urine Bilirubin Negative Urine Urobilinogen 2.0 Ur Leukocyte Esterase Negative RPR Titer a/p: continue alcohol detox protocol- pt stable and doing well.continue methadone MAT.
[2018-08-13] MEDS: MIRTAZAPINE 15 MG TABLET (FP) PO SCH (22:50)
[2018-08-13] MEDS: chlordiazePOXIDE HCL 10 MG CAPSULE PO SCH (22:50)
[2018-08-13] MEDS: THIAMINE HCL 100 MG TABLET (FP) PO SCH (22:51)
[2018-08-14] MEDS ORDERED: METHADONE HCL 40 MG DISPERSABLE TABLET ONE (06:29)
[2018-08-14] MEDS ORDERED: METHADONE HCL 10 MG TABLET ONE (06:29)
[2018-08-14] MEDS: chlordiazePOXIDE HCL 10 MG CAPSULE PO SCH ×2 (06:38→10:05)
[2018-08-14] MEDS: METHADONE 40 MG, METHADONE 30 MG PO SCH (06:39)
[2018-08-14] MEDS: PRENATAL VITAMINS W/ FOLIC ACID TABLET (FP) PO SCH (10:05)
[2018-08-14] MEDS: NICOTINE 14 MG/24 HOURS TOPICAL PATCH TD SCH (10:05)
[2018-08-14] MEDS: DOXEPIN HCL 25 MG CAPSULE PO SCH (10:06)
[2018-08-14 13:19] VITALS: BP 127/78; PULSE 102; TEMP 98.6
--- NOTE | 2018-08-14 15:00 | DS ---
[facility] Detox Discharge Summary Admission Date: 08/10/18 Discharge Date: 08/14/18 - History Present History: Alcohol Dependence, Cocaine Dependence, Opioid Dependence, Sedative Dependence, MMTP Additional Comments: PATIENT GOING TO [facility] ([place], [place]) FOR AFTERCARE. SINCE PATIENT NEEDS TO GET TO [facility] EARLY IN AM TO ENSURE ADMISSION, HE WILL GO HOME FOR THIS EVENING, THEN WILL GO DIRECTLY TO [facility] (DIRECTIONS TO GET TO HOSPITAL GIVEN TO PATIENT BY COUNSELOR Ary CARDONA) EARLY IN AM TOMORROW TO APPLY FOR ADMISSION THERE. PATIENT DECLINED OFFER OF MEDICATION PRESCRIPTION FOR HOME MEDICATION AT TIME OF DISCHARGE FROM DETOX, NOTING THAT HE CURRENTLY HAS ADEQUATE SUPPLIES OF ALL PRESCRIBED HOME MEDICATIONS AT HOME. PATIENT WAS DISCHARGED FROM DETOX UNIT IN STABLE MEDICAL CONDITION. Pertinent Past History: M.Jemal.T.P., Hep C, Hypercholesrterolemia, Asthma, History of depression, Bipolar Disorder, History of Arthritis, Nicotine Dependence, Weight Loss, G.E.R.D. - Physical Exam Results Vital Signs: Vital Signs Temperature 98.6 F 08/14/18 13:18 Pulse Rate 102 H 08/14/18 13:18 Respiratory Rate 18 08/14/18 13:18 Blood Pressure 127/78 08/14/18 13:18 O2 Sat by Pulse Oximetry (%) Pertinent Admission Physical Exam Findings: WITHDRAWAL SYMPTOMS. Laboratory Tests 08/11/18 08/11/18 08/11/18 07:00 07:00 07:00 WBC 6.9 RBC 4.28 Hgb 12.4 Hct 35.3 L MCV 82.7 MCH 28.9 MCHC 35.0 RDW 15.0 Plt Count 148 MPV 9.4 Sodium 142 Potassium 3.6 Chloride 108 H Carbon Dioxide 26 Anion Gap 7 L BUN 20 H Creatinine 1.0 Creat Clearance w eGFR > 60 Random Glucose 109 H Calcium 8.4 L Total Bilirubin 0.6 AST 36 ALT 69 H Alkaline Phosphatase 203 H Total Protein 7.1 Albumin 3.3 L Urine Color Urine Appearance Urine pH Ur Specific [place] Urine Protein Urine Glucose (UA) Urine Ketones Urine Blood Urine Nitrite Urine Bilirubin Urine Urobilinogen Ur Leukocyte Esterase RPR Titer Nonreactive 08/13/18 08/13/18 07:00 10:40 WBC RBC Hgb Hct MCV MCH MCHC RDW Plt Count MPV Sodium Potassium Chloride Carbon Dioxide Anion Gap BUN Creatinine Creat Clearance w eGFR Random Glucose Calcium Total Bilirubin AST ALT Alkaline Phosphatase 184 H Total Protein Albumin Urine Color Dk yellow Urine Appearance Slcloudy Urine pH 5.0 Ur Specific [place] 1.032 Urine Protein Negative Urine Glucose (UA) Negative Urine Ketones Negative Urine Blood Negative Urine Nitrite Negative Urine Bilirubin Negative Urine Urobilinogen 2.0 Ur Leukocyte Esterase Negative RPR Titer LABS NOTED. - Treatment Hospital Course: Detox Protocol Followed, Detoxed Safely, Responded well, Discharged Condition Good, Rehab Referral Accepted Patient has Accepted a Rehab Referral to: [facility] ([place], [place]). - Medication Discharge Medications: Ambulatory Orders Albuterol Sulfate Inhaler - [Ventolin HFA Inhaler -] 2 inh PO Q4H PRN #1 inh 12/27 Omeprazole [Prilosec] 40 mg PO DAILY #30 capsule. 01/17/15 Gabapentin 800 mg PO Q8H 03/11/18 Zolpidem Tartrate [Ambien] 10 mg PO HS 03/11/18 Doxepin HCl [Sinequan -] 25 mg PO DAILY #30 capsule 08/11/18 Mirtazapine [Remeron -] 15 mg PO HS #30 tablet 08/11/18 - Diagnosis (1) Alcohol dependence with uncomplicated withdrawal Current Visit: Yes Status: Acute (2) Cocaine dependence Current Visit: Yes Status: Acute Qualifiers: Substance use status: uncomplicated Qualified Code(s): F14.20 - Cocaine dependence, uncomplicated (3) Asthma Current Visit: Yes Status: Chronic Qualifiers: Asthma severity: mild Asthma persistence: intermittent Asthma complication type: uncomplicated Qualified Code(s): J45.20 - Mild intermittent asthma, uncomplicated (4) Bipolar disorder Current Visit: Yes Status: Chronic Qualifiers: Active/Remission status: remission status unspecified Qualified Code(s): F31.9 - Bipolar disorder, unspecified (5) Drug-induced mood disorder Current Visit: Yes Status: Chronic (6) Gastroesophageal reflux disease Current Visit: Yes Status: Chronic Qualifiers: Esophagitis presence: without esophagitis Qualified Code(s): K21.9 - Gastro -esophageal reflux disease without esophagitis (7) Hepatitis C Current Visit: Yes Status: Chronic Qualifiers: Viral hepatitis chronicity: chronic Hepatic coma status: without hepatic coma Qualified Code(s): B18.2 - Chronic viral hepatitis C (8) Methadone maintenance therapy patient Current Visit: Yes Status: Chronic (9) Nicotine dependence Current Visit: Yes Status: Chronic Qualifiers: Nicotine product type: cigarettes Substance use status: uncomplicated Qualified Code(s): F17.210 - Nicotine dependence, cigarettes, uncomplicated (10) Opiate dependence Current Visit: Yes Status: Chronic Qualifiers: Substance use status: uncomplicated Qualified Code(s): F11.20 - Opioid dependence, uncomplicated (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
== END 2018-08-14 15:23 | disposition home or self-care (01) | DRG 773 ==
LOC: YASAS 21:13 → Y6N 21:53
PROVIDERS: ADMIT Neuromusculoskeletal Medicine & OMM; ATTEND Neuromusculoskeletal Medicine & OMM
PROC: HZ2ZZZZ Detoxification Services for Substance Abuse Treatment (ICD-10-PCS; principal; 2018-08-10)
DX: F10.230 Alcohol dependence with withdrawal, uncomplicated (principal); F11.23 Opioid dependence with withdrawal; F11.282 Opioid dependence with opioid-induced sleep disorder; F13.230 Sedative, hypnotic or anxiolytic dependence with withdrawal, uncomplicated; F14.20 Cocaine dependence, uncomplicated; F17.210 Nicotine dependence, cigarettes, uncomplicated; F31.9 Bipolar disorder, unspecified; F19.24 Other psychoactive substance dependence with psychoactive substance-induced mood disorder; F19.282 Other psychoactive substance dependence with psychoactive substance-induced sleep disorder; J45.20 Mild intermittent asthma, uncomplicated; K21.9 Gastro-esophageal reflux disease without esophagitis; B18.2 Chronic viral hepatitis C; M19.90 Unspecified osteoarthritis, unspecified site; E78.5 Hyperlipidemia, unspecified
CPT/HCPCS: 36415; 80053; 81003; 84075; 85027; 86593

== ENCOUNTER 2021-07-25 21:54 | Inpatient (IN) | payer OTHER ==
[2021-07-25 22:58] VITALS: BMI 24.2
[2021-07-26] MEDS ORDERED: P-EPHED 60MG/TRIPROLIDI 2.5MG TABLET PO PRN (01:46)
[2021-07-26] MEDS ORDERED: LOPERAMIDE HCL 2 MG CAPSULE PO PRN (01:46)
[2021-07-26] MEDS ORDERED: NICOTINE POLACRILEX 2 MG GUM BUC PRN (01:46)
[2021-07-26] MEDS ORDERED: MAGNESIUM CITRATE 300 ML BOTTLE PO PRN (01:46)
[2021-07-26] MEDS ORDERED: guaiFENesin 200 MG/10 ML 10 ML UNIT-DOSE CUPS PO PRN (01:46)
[2021-07-26] MEDS ORDERED: methaDONE HCL 40 MG DISPERSABLE TABLET PO SCH (06:45)
[2021-07-26] MEDS ORDERED: TUBERCULIN PPD 5 TU/0.1ML VIAL ID ONE (07:02)
[2021-07-26] MEDS ORDERED: methaDONE HCL 10 MG TABLET ONE (07:04)
[2021-07-26] MEDS ORDERED: methaDONE HCL 40 MG DISPERSABLE TABLET ONE (07:05)
[2021-07-26] MEDS: NICOTINE 14 MG/24 HOURS TOPICAL PATCH TD SCH (09:37)
[2021-07-26] MEDS: PRENATAL VITAMINS W/ FOLIC ACID TABLET (FP) PO SCH (09:37)
[2021-07-26 11:55] LABS: BLOOD UREA NITROGEN 19.1 mg/dL (7-18); CALCIUM 8.6 mg/dL (8.5-10.1)
[2021-07-26 11:56] LABS: ALBUMIN 2.9 g/dl (3.4-5.0)
[2021-07-26 11:59] LABS: CREATININE 0.8 mg/dL (0.55-1.3)
[2021-07-26 12:06] LABS: HEMATOCRIT 33.5 % (35.4-49); HEMOGLOBIN 10.8 GM/dL (11.7-16.9); MCH 25.2 pg (25.7-33.7); MCHC 32.1 g/dl (32.0-35.9); MEAN CELL VOLUME 78.5 fl (80-96); MEAN PLT VOLUME 9.1 fl (7.5-11.1); PLATELET COUNT 176 10^3/uL (134-434); RBC 4.27 M/mm3 (4.00-5.60); RDW 17.1 % (11.9-15.9); WHITE BLOOD COUNT 4.4 K/mm3 (4.0-10.0)
[2021-07-26 12:07] LABS: BILIRUBIN,TOTAL 0.3 mg/dL (0.2-1); TOT PROT 6.7 g/dl (6.4-8.2)
[2021-07-26] MEDS: THIAMINE HCL 100 MG TABLET (FP) PO SCH (21:35)
[2021-07-26] MEDS: MELATONIN 5 MG TABLETS PO SCH (21:35)
[2021-07-27] MEDS ORDERED: methaDONE HCL 10 MG TABLET ONE (03:38)
[2021-07-27] MEDS ORDERED: methaDONE HCL 40 MG DISPERSABLE TABLET ONE (03:38)
[2021-07-27] MEDS: IBUPROFEN 400 MG TABLET (FP) PO PRN (09:38)
[2021-07-27] MEDS: PRENATAL VITAMINS W/ FOLIC ACID TABLET (FP) PO SCH (09:38)
[2021-07-27] MEDS: NICOTINE 14 MG/24 HOURS TOPICAL PATCH TD SCH (09:39)
[2021-07-27 11:58] LABS: URINE APPEARANCE CLEAR; URINE BILIRUBIN NEGATIVE (NEGATIVE); URINE COLOR YELLOW; URINE GLUCOSE (UA) NEGATIVE (NEGATIVE); URINE KETONE TRACE (NEGATIVE); URINE LEUK ESTERASE NEGATIVE (NEGATIVE); URINE NITRITE NEGATIVE (NEGATIVE); URINE PROTEIN NEGATIVE (NEGATIVE); URINE UROBILINOGEN 0.2 mg/dL (0.2-1.0)
[2021-07-27] MEDS: THIAMINE HCL 100 MG TABLET (FP) PO SCH (21:19)
[2021-07-27] MEDS: MELATONIN 5 MG TABLETS PO SCH (21:19)
[2021-07-28] MEDS ORDERED: methaDONE HCL 10 MG TABLET ONE (03:13)
[2021-07-28] MEDS ORDERED: methaDONE HCL 40 MG DISPERSABLE TABLET ONE (03:13)
[2021-07-28] MEDS: NICOTINE 14 MG/24 HOURS TOPICAL PATCH TD SCH (09:17)
[2021-07-28] MEDS: PRENATAL VITAMINS W/ FOLIC ACID TABLET (FP) PO SCH (09:17)
[2021-07-28] MEDS: IBUPROFEN 400 MG TABLET (FP) PO PRN (09:21)
[2021-07-28] MEDS: MELATONIN 5 MG TABLETS PO SCH (21:04)
[2021-07-28] MEDS: THIAMINE HCL 100 MG TABLET (FP) PO SCH (21:04)
[2021-07-29] MEDS ORDERED: methaDONE HCL 10 MG TABLET ONE (04:09)
[2021-07-29] MEDS ORDERED: methaDONE HCL 40 MG DISPERSABLE TABLET ONE (04:09)
[2021-07-29] MEDS: PRENATAL VITAMINS W/ FOLIC ACID TABLET (FP) PO SCH (09:46)
[2021-07-29] MEDS: IBUPROFEN 400 MG TABLET (FP) PO PRN (09:46)
[2021-07-29] MEDS: NICOTINE 14 MG/24 HOURS TOPICAL PATCH TD SCH (09:47)
[2021-07-29] MEDS: MAG HYDROX/AL HYDROX/SIMETH 30 ML UNIT-DOSE CUP PO PRN (14:26)
[2021-07-29] MEDS: MELATONIN 5 MG TABLETS PO SCH (21:31)
[2021-07-29] MEDS: THIAMINE HCL 100 MG TABLET (FP) PO SCH (21:31)
[2021-07-30] MEDS ORDERED: methaDONE HCL 40 MG DISPERSABLE TABLET ONE (03:53)
[2021-07-30] MEDS ORDERED: methaDONE HCL 10 MG TABLET ONE (03:53)
[2021-07-30] MEDS: MAG HYDROX/AL HYDROX/SIMETH 30 ML UNIT-DOSE CUP PO PRN (10:10)
[2021-07-30] MEDS: PRENATAL VITAMINS W/ FOLIC ACID TABLET (FP) PO SCH (10:10)
[2021-07-30] MEDS: NICOTINE 14 MG/24 HOURS TOPICAL PATCH TD SCH (10:10)
[2021-07-30] MEDS: MELATONIN 5 MG TABLETS PO SCH (21:33)
[2021-07-30] MEDS: THIAMINE HCL 100 MG TABLET (FP) PO SCH (21:33)
[2021-07-31] MEDS ORDERED: methaDONE HCL 10 MG TABLET ONE (03:48)
[2021-07-31] MEDS ORDERED: methaDONE HCL 40 MG DISPERSABLE TABLET ONE (03:48)
[2021-07-31] MEDS: MAG HYDROX/AL HYDROX/SIMETH 30 ML UNIT-DOSE CUP PO PRN (09:33)
[2021-07-31] MEDS: PRENATAL VITAMINS W/ FOLIC ACID TABLET (FP) PO SCH (09:34)
[2021-07-31] MEDS: NICOTINE 14 MG/24 HOURS TOPICAL PATCH TD SCH (09:34)
[2021-07-31] MEDS ORDERED: ALBUTEROL SO4 HFA INHALER IH PRN (10:22)
[2021-07-31] MEDS: MELATONIN 5 MG TABLETS PO SCH (21:08)
[2021-07-31] MEDS: THIAMINE HCL 100 MG TABLET (FP) PO SCH (21:08)
[2021-08-01] MEDS ORDERED: methaDONE HCL 10 MG TABLET ONE (03:52)
[2021-08-01] MEDS ORDERED: methaDONE HCL 40 MG DISPERSABLE TABLET ONE (03:53)
[2021-08-01] MEDS: PANTOPRAZOLE 40 MG TABLET PO SCH (10:01)
[2021-08-01] MEDS: IBUPROFEN 400 MG TABLET (FP) PO PRN (10:01)
[2021-08-01] MEDS: PRENATAL VITAMINS W/ FOLIC ACID TABLET (FP) PO SCH (10:01)
[2021-08-01] MEDS: NICOTINE 14 MG/24 HOURS TOPICAL PATCH TD SCH (10:02)
[2021-08-01] MEDS: MELATONIN 5 MG TABLETS PO SCH (21:28)
[2021-08-01] MEDS: ACETAMINOPHEN 325 MG TABLET (FP) PO PRN (21:28)
[2021-08-01] MEDS: THIAMINE HCL 100 MG TABLET (FP) PO SCH (21:28)
[2021-08-02] MEDS ORDERED: methaDONE HCL 10 MG TABLET PO SCH (06:45)
[2021-08-02] MEDS ORDERED: ONDANSETRON *ODT* 4 MG TABLET SL ONE (07:37)
[2021-08-02] MEDS ORDERED: methaDONE HCL 10 MG TABLET ONE (08:45)
[2021-08-02] MEDS ORDERED: methaDONE HCL 40 MG DISPERSABLE TABLET ONE (08:45)
[2021-08-02] MEDS: NICOTINE 14 MG/24 HOURS TOPICAL PATCH TD SCH (10:09)
[2021-08-02] MEDS: PRENATAL VITAMINS W/ FOLIC ACID TABLET (FP) PO SCH (10:10)
[2021-08-02] MEDS: PANTOPRAZOLE 40 MG TABLET PO SCH (10:10)
[2021-08-02] MEDS: SIMETHICONE 80 MG TAB.CHEW (FP) PO PRN (12:33)
[2021-08-02] MEDS: MAG HYDROX/AL HYDROX/SIMETH 30 ML UNIT-DOSE CUP PO PRN (15:15)
[2021-08-02] MEDS: ACETAMINOPHEN 325 MG TABLET (FP) PO PRN (15:16)
[2021-08-02] MEDS: THIAMINE HCL 100 MG TABLET (FP) PO SCH (21:17)
[2021-08-02] MEDS: MELATONIN 5 MG TABLETS PO SCH (21:17)
[2021-08-03] MEDS ORDERED: methaDONE HCL 10 MG TABLET ONE (03:36)
[2021-08-03] MEDS ORDERED: methaDONE HCL 40 MG DISPERSABLE TABLET ONE (03:37)
[2021-08-03] MEDS: SIMETHICONE 80 MG TAB.CHEW (FP) PO PRN (06:29)
[2021-08-03] MEDS: PRENATAL VITAMINS W/ FOLIC ACID TABLET (FP) PO SCH (10:13)
[2021-08-03] MEDS: NICOTINE 14 MG/24 HOURS TOPICAL PATCH TD SCH (10:13)
[2021-08-03] MEDS: PANTOPRAZOLE 40 MG TABLET PO SCH (10:32)
[2021-08-03] MEDS: MELATONIN 5 MG TABLETS PO SCH (21:19)
[2021-08-03] MEDS: THIAMINE HCL 100 MG TABLET (FP) PO SCH (21:19)
[2021-08-03] MEDS: ACETAMINOPHEN 325 MG TABLET (FP) PO PRN (21:20)
[2021-08-03] MEDS: MONTELUKAST NA 10 MG TABLET PO ONE ×2 (21:53→22:48)
[2021-08-04] MEDS ORDERED: methaDONE HCL 40 MG DISPERSABLE TABLET ONE (03:47)
[2021-08-04] MEDS ORDERED: methaDONE HCL 10 MG TABLET ONE (03:47)
[2021-08-04] MEDS: SIMETHICONE 80 MG TAB.CHEW (FP) PO PRN (06:21)
[2021-08-04] MEDS: NICOTINE 14 MG/24 HOURS TOPICAL PATCH TD SCH (10:06)
[2021-08-04] MEDS: PRENATAL VITAMINS W/ FOLIC ACID TABLET (FP) PO SCH (10:06)
[2021-08-04] MEDS: PANTOPRAZOLE 40 MG TABLET PO SCH (10:06)
[2021-08-04] MEDS: MAG HYDROX/AL HYDROX/SIMETH 30 ML UNIT-DOSE CUP PO PRN ×2 (14:13→21:18)
[2021-08-04] MEDS: FERROUS SO4 325 MG TABLET (FP) PO SCH (17:35)
[2021-08-04] MEDS: ACETAMINOPHEN 325 MG TABLET (FP) PO PRN (21:15)
[2021-08-04] MEDS: MELATONIN 5 MG TABLETS PO SCH (21:16)
[2021-08-04] MEDS: THIAMINE HCL 100 MG TABLET (FP) PO SCH (22:00)
[2021-08-05] MEDS ORDERED: methaDONE HCL 10 MG TABLET ONE (03:48)
[2021-08-05] MEDS ORDERED: methaDONE HCL 40 MG DISPERSABLE TABLET ONE (03:49)
[2021-08-05] MEDS: SIMETHICONE 80 MG TAB.CHEW (FP) PO PRN (06:53)
[2021-08-05] MEDS: FERROUS SO4 325 MG TABLET (FP) PO SCH ×2 (07:02→17:52)
[2021-08-05] MEDS: PANTOPRAZOLE 40 MG TABLET PO SCH (09:54)
[2021-08-05] MEDS: NICOTINE 14 MG/24 HOURS TOPICAL PATCH TD SCH (09:54)
[2021-08-05] MEDS: PRENATAL VITAMINS W/ FOLIC ACID TABLET (FP) PO SCH (09:54)
[2021-08-05] MEDS: THIAMINE HCL 100 MG TABLET (FP) PO SCH (21:34)
[2021-08-05] MEDS: MELATONIN 5 MG TABLETS PO SCH (21:34)
[2021-08-06] MEDS ORDERED: methaDONE HCL 10 MG TABLET ONE (03:47)
[2021-08-06] MEDS ORDERED: methaDONE HCL 40 MG DISPERSABLE TABLET ONE (03:47)
[2021-08-06] MEDS: SIMETHICONE 80 MG TAB.CHEW (FP) PO PRN (06:28)
[2021-08-06] MEDS: FERROUS SO4 325 MG TABLET (FP) PO SCH ×2 (07:04→17:32)
[2021-08-06] MEDS: ACETAMINOPHEN 325 MG TABLET (FP) PO PRN (09:29)
[2021-08-06] MEDS: PRENATAL VITAMINS W/ FOLIC ACID TABLET (FP) PO SCH (09:30)
[2021-08-06] MEDS: PANTOPRAZOLE 40 MG TABLET PO SCH (09:30)
[2021-08-06] MEDS: NICOTINE 14 MG/24 HOURS TOPICAL PATCH TD SCH (09:30)
[2021-08-06] MEDS: MELATONIN 5 MG TABLETS PO SCH (21:27)
[2021-08-06] MEDS: THIAMINE HCL 100 MG TABLET (FP) PO SCH (21:28)
[2021-08-07] MEDS ORDERED: methaDONE HCL 40 MG DISPERSABLE TABLET ONE (04:10)
[2021-08-07] MEDS ORDERED: methaDONE HCL 10 MG TABLET ONE (04:10)
[2021-08-07] MEDS: FERROUS SO4 325 MG TABLET (FP) PO SCH ×2 (07:08→17:40)
[2021-08-07] MEDS ORDERED: NICOTINE 10 MG CARTRIDGE (INHALER) IH PRN (09:36)
[2021-08-07] MEDS: PRENATAL VITAMINS W/ FOLIC ACID TABLET (FP) PO SCH (10:00)
[2021-08-07] MEDS: PANTOPRAZOLE 40 MG TABLET PO SCH (10:00)
[2021-08-07] MEDS: NICOTINE 14 MG/24 HOURS TOPICAL PATCH TD SCH (10:00)
[2021-08-07] MEDS: SIMETHICONE 80 MG TAB.CHEW (FP) PO PRN (10:01)
[2021-08-07] MEDS: THIAMINE HCL 100 MG TABLET (FP) PO SCH (21:38)
[2021-08-07] MEDS: MELATONIN 5 MG TABLETS PO SCH (21:39)
[2021-08-08] MEDS ORDERED: methaDONE HCL 10 MG TABLET ONE (06:16)
[2021-08-08] MEDS: SIMETHICONE 80 MG TAB.CHEW (FP) PO PRN (06:17)
[2021-08-08] MEDS ORDERED: methaDONE HCL 40 MG DISPERSABLE TABLET ONE (06:17)
[2021-08-08] MEDS: FERROUS SO4 325 MG TABLET (FP) PO SCH ×2 (07:06→17:02)
[2021-08-08] MEDS: PANTOPRAZOLE 40 MG TABLET PO SCH (10:17)
[2021-08-08] MEDS: PRENATAL VITAMINS W/ FOLIC ACID TABLET (FP) PO SCH (10:17)
[2021-08-08] MEDS: NICOTINE 14 MG/24 HOURS TOPICAL PATCH TD SCH (10:18)
[2021-08-08] MEDS: THIAMINE HCL 100 MG TABLET (FP) PO SCH (21:28)
[2021-08-08] MEDS: MELATONIN 5 MG TABLETS PO SCH (21:28)
[2021-08-09] MEDS ORDERED: methaDONE HCL 40 MG DISPERSABLE TABLET ONE (03:39)
[2021-08-09] MEDS ORDERED: methaDONE HCL 10 MG TABLET ONE (03:39)
[2021-08-09] MEDS: SIMETHICONE 80 MG TAB.CHEW (FP) PO PRN (06:33)
[2021-08-09] MEDS: FERROUS SO4 325 MG TABLET (FP) PO SCH ×2 (07:19→17:16)
[2021-08-09] MEDS: PRENATAL VITAMINS W/ FOLIC ACID TABLET (FP) PO SCH (09:45)
[2021-08-09] MEDS: NICOTINE 14 MG/24 HOURS TOPICAL PATCH TD SCH (09:45)
[2021-08-09] MEDS: PANTOPRAZOLE 40 MG TABLET PO SCH (09:45)
[2021-08-09] MEDS: MELATONIN 5 MG TABLETS PO SCH (21:08)
[2021-08-09] MEDS: THIAMINE HCL 100 MG TABLET (FP) PO SCH (21:09)
[2021-08-10] MEDS ORDERED: methaDONE HCL 10 MG TABLET ONE (04:01)
[2021-08-10] MEDS ORDERED: methaDONE HCL 40 MG DISPERSABLE TABLET ONE (04:01)
[2021-08-10] MEDS: FERROUS SO4 325 MG TABLET (FP) PO SCH ×2 (07:08→16:55)
[2021-08-10] MEDS: PANTOPRAZOLE 40 MG TABLET PO SCH (09:37)
[2021-08-10] MEDS: PRENATAL VITAMINS W/ FOLIC ACID TABLET (FP) PO SCH (09:37)
[2021-08-10] MEDS: NICOTINE 14 MG/24 HOURS TOPICAL PATCH TD SCH (09:37)
[2021-08-10] MEDS: IBUPROFEN 400 MG TABLET (FP) PO PRN (13:47)
[2021-08-10] MEDS: THIAMINE HCL 100 MG TABLET (FP) PO SCH (21:47)
[2021-08-10] MEDS: MELATONIN 5 MG TABLETS PO SCH (21:47)
[2021-08-11] MEDS ORDERED: methaDONE HCL 10 MG TABLET ONE (03:57)
[2021-08-11] MEDS ORDERED: methaDONE HCL 40 MG DISPERSABLE TABLET ONE (03:58)
[2021-08-11] MEDS: FERROUS SO4 325 MG TABLET (FP) PO SCH ×2 (07:03→18:16)
[2021-08-11] MEDS: PRENATAL VITAMINS W/ FOLIC ACID TABLET (FP) PO SCH (10:14)
[2021-08-11] MEDS: PANTOPRAZOLE 40 MG TABLET PO SCH (10:14)
[2021-08-11] MEDS: NICOTINE 14 MG/24 HOURS TOPICAL PATCH TD SCH (10:15)
[2021-08-11] MEDS: MAGNESIUM HYDROX 2400MG/30ML ORAL SUSPENSION 30 ML CUP PO PRN (10:15)
[2021-08-11] MEDS: MELATONIN 5 MG TABLETS PO SCH (21:12)
[2021-08-11] MEDS: THIAMINE HCL 100 MG TABLET (FP) PO SCH (21:12)
[2021-08-12] MEDS ORDERED: methaDONE HCL 10 MG TABLET ONE (04:02)
[2021-08-12] MEDS ORDERED: methaDONE HCL 40 MG DISPERSABLE TABLET ONE (04:03)
[2021-08-12] MEDS: FERROUS SO4 325 MG TABLET (FP) PO SCH ×2 (07:28→17:48)
[2021-08-12] MEDS: PRENATAL VITAMINS W/ FOLIC ACID TABLET (FP) PO SCH (09:59)
[2021-08-12] MEDS: NICOTINE 14 MG/24 HOURS TOPICAL PATCH TD SCH (09:59)
[2021-08-12] MEDS: PANTOPRAZOLE 40 MG TABLET PO SCH (09:59)
[2021-08-12] MEDS: MAGNESIUM HYDROX 2400MG/30ML ORAL SUSPENSION 30 ML CUP PO PRN (15:19)
[2021-08-12] MEDS: MELATONIN 5 MG TABLETS PO SCH (21:03)
[2021-08-12] MEDS: THIAMINE HCL 100 MG TABLET (FP) PO SCH (21:03)
[2021-08-13] MEDS ORDERED: methaDONE HCL 10 MG TABLET ONE (03:52)
[2021-08-13] MEDS ORDERED: methaDONE HCL 40 MG DISPERSABLE TABLET ONE (03:53)
[2021-08-13] MEDS: FERROUS SO4 325 MG TABLET (FP) PO SCH ×2 (07:00→17:55)
[2021-08-13] MEDS: PRENATAL VITAMINS W/ FOLIC ACID TABLET (FP) PO SCH (09:59)
[2021-08-13] MEDS: NICOTINE 14 MG/24 HOURS TOPICAL PATCH TD SCH (09:59)
[2021-08-13] MEDS: PANTOPRAZOLE 40 MG TABLET PO SCH (09:59)
[2021-08-13] MEDS: THIAMINE HCL 100 MG TABLET (FP) PO SCH (21:38)
[2021-08-13] MEDS: MELATONIN 5 MG TABLETS PO SCH (21:38)
[2021-08-14] MEDS ORDERED: methaDONE HCL 40 MG DISPERSABLE TABLET ONE (03:56)
[2021-08-14] MEDS ORDERED: methaDONE HCL 10 MG TABLET ONE (03:56)
[2021-08-14] MEDS: FERROUS SO4 325 MG TABLET (FP) PO SCH ×2 (07:02→17:12)
[2021-08-14] MEDS: PRENATAL VITAMINS W/ FOLIC ACID TABLET (FP) PO SCH (10:07)
[2021-08-14] MEDS: PANTOPRAZOLE 40 MG TABLET PO SCH (10:07)
[2021-08-14] MEDS: ACETAMINOPHEN 325 MG TABLET (FP) PO PRN (10:08)
[2021-08-14] MEDS: NICOTINE 14 MG/24 HOURS TOPICAL PATCH TD SCH (10:30)
[2021-08-14] MEDS: THIAMINE HCL 100 MG TABLET (FP) PO SCH (21:48)
[2021-08-14] MEDS: MELATONIN 5 MG TABLETS PO SCH (21:48)
[2021-08-15] MEDS ORDERED: methaDONE HCL 10 MG TABLET ONE (06:16)
[2021-08-15] MEDS ORDERED: methaDONE HCL 40 MG DISPERSABLE TABLET ONE (06:17)
[2021-08-15] MEDS: FERROUS SO4 325 MG TABLET (FP) PO SCH ×2 (07:00→16:50)
[2021-08-15] MEDS: NICOTINE 14 MG/24 HOURS TOPICAL PATCH TD SCH (10:00)
[2021-08-15] MEDS: PANTOPRAZOLE 40 MG TABLET PO SCH (10:00)
[2021-08-15] MEDS: IBUPROFEN 400 MG TABLET (FP) PO PRN (10:00)
[2021-08-15] MEDS: PRENATAL VITAMINS W/ FOLIC ACID TABLET (FP) PO SCH (10:00)
[2021-08-15 12:15] LABS: HEMOGLOBIN 12.1 GM/dL (11.7-16.9); MCH 25.2 pg (25.7-33.7); MCHC 30.9 g/dl (32.0-35.9); MEAN CELL VOLUME 81.5 fl (80-96); MEAN PLT VOLUME 10.3 fl (7.5-11.1); PLATELET COUNT 146 10^3/uL (134-434); RBC 4.78 M/mm3 (4.00-5.60); RDW 19.5 % (11.9-15.9); WHITE BLOOD COUNT 7.8 K/mm3 (4.0-10.0)
[2021-08-15 12:38] LABS: CALCIUM 9.2 mg/dL (8.5-10.1)
[2021-08-15 12:39] LABS: ALBUMIN 3.4 g/dl (3.4-5.0); BLOOD UREA NITROGEN 27.1 mg/dL (7-18)
[2021-08-15 12:42] LABS: CREATININE 0.9 mg/dL (0.55-1.3)
[2021-08-15 12:44] LABS: BILIRUBIN,TOTAL 1.3 mg/dL (0.2-1); TOT PROT 7.8 g/dl (6.4-8.2)
[2021-08-15] MEDS: MELATONIN 5 MG TABLETS PO SCH (21:19)
[2021-08-15] MEDS: THIAMINE HCL 100 MG TABLET (FP) PO SCH (21:19)
[2021-08-16] MEDS ORDERED: methaDONE HCL 10 MG TABLET ONE (03:15)
[2021-08-16] MEDS ORDERED: methaDONE HCL 40 MG DISPERSABLE TABLET ONE (03:16)
[2021-08-16] MEDS: FERROUS SO4 325 MG TABLET (FP) PO SCH ×2 (07:12→16:44)
[2021-08-16] MEDS: PANTOPRAZOLE 40 MG TABLET PO SCH (09:34)
[2021-08-16] MEDS: PRENATAL VITAMINS W/ FOLIC ACID TABLET (FP) PO SCH (09:34)
[2021-08-16] MEDS: NICOTINE 14 MG/24 HOURS TOPICAL PATCH TD SCH (09:34)
[2021-08-16] MEDS: THIAMINE HCL 100 MG TABLET (FP) PO SCH (21:22)
[2021-08-16] MEDS: MELATONIN 5 MG TABLETS PO SCH (21:22)
[2021-08-17] MEDS ORDERED: methaDONE HCL 10 MG TABLET ONE (03:47)
[2021-08-17] MEDS ORDERED: methaDONE HCL 40 MG DISPERSABLE TABLET ONE (03:48)
[2021-08-17] MEDS: FERROUS SO4 325 MG TABLET (FP) PO SCH ×2 (07:10→17:50)
[2021-08-17] MEDS: PRENATAL VITAMINS W/ FOLIC ACID TABLET (FP) PO SCH (09:49)
[2021-08-17] MEDS: PANTOPRAZOLE 40 MG TABLET PO SCH (09:49)
[2021-08-17] MEDS: ACETAMINOPHEN 325 MG TABLET (FP) PO PRN (09:50)
[2021-08-17] MEDS: NICOTINE 14 MG/24 HOURS TOPICAL PATCH TD SCH (09:50)
[2021-08-17] MEDS: MELATONIN 5 MG TABLETS PO SCH (21:49)
[2021-08-17] MEDS: THIAMINE HCL 100 MG TABLET (FP) PO SCH (21:49)
[2021-08-18] MEDS ORDERED: methaDONE HCL 40 MG DISPERSABLE TABLET ONE (03:26)
[2021-08-18] MEDS ORDERED: methaDONE HCL 10 MG TABLET ONE (03:26)
[2021-08-18] MEDS: FERROUS SO4 325 MG TABLET (FP) PO SCH ×2 (07:31→18:24)
[2021-08-18] MEDS: PRENATAL VITAMINS W/ FOLIC ACID TABLET (FP) PO SCH (09:58)
[2021-08-18] MEDS: PANTOPRAZOLE 40 MG TABLET PO SCH (09:58)
[2021-08-18] MEDS: NICOTINE 14 MG/24 HOURS TOPICAL PATCH TD SCH (09:58)
[2021-08-18] MEDS: MELATONIN 5 MG TABLETS PO SCH (21:24)
[2021-08-18] MEDS: THIAMINE HCL 100 MG TABLET (FP) PO SCH (21:24)
[2021-08-19] MEDS ORDERED: methaDONE HCL 40 MG DISPERSABLE TABLET ONE (03:59)
[2021-08-19] MEDS ORDERED: methaDONE HCL 10 MG TABLET ONE (03:59)
[2021-08-19] MEDS: FERROUS SO4 325 MG TABLET (FP) PO SCH ×2 (07:03→16:56)
[2021-08-19] MEDS: PANTOPRAZOLE 40 MG TABLET PO SCH (09:53)
[2021-08-19] MEDS: PRENATAL VITAMINS W/ FOLIC ACID TABLET (FP) PO SCH (09:53)
[2021-08-19] MEDS: NICOTINE 14 MG/24 HOURS TOPICAL PATCH TD SCH (09:54)
[2021-08-19] MEDS: MELATONIN 5 MG TABLETS PO SCH (21:29)
[2021-08-19] MEDS: THIAMINE HCL 100 MG TABLET (FP) PO SCH (21:30)
[2021-08-20] MEDS ORDERED: methaDONE HCL 10 MG TABLET ONE (03:47)
[2021-08-20] MEDS ORDERED: methaDONE HCL 40 MG DISPERSABLE TABLET ONE (03:47)
[2021-08-20] MEDS: FERROUS SO4 325 MG TABLET (FP) PO SCH ×2 (07:02→16:55)
[2021-08-20] MEDS: PRENATAL VITAMINS W/ FOLIC ACID TABLET (FP) PO SCH (09:31)
[2021-08-20] MEDS: PANTOPRAZOLE 40 MG TABLET PO SCH (09:31)
[2021-08-20] MEDS: NICOTINE 14 MG/24 HOURS TOPICAL PATCH TD SCH (09:31)
[2021-08-20] MEDS: MELATONIN 5 MG TABLETS PO SCH (21:31)
[2021-08-20] MEDS: THIAMINE HCL 100 MG TABLET (FP) PO SCH (21:31)
[2021-08-21] MEDS ORDERED: methaDONE HCL 40 MG DISPERSABLE TABLET ONE (03:28)
[2021-08-21] MEDS ORDERED: methaDONE HCL 10 MG TABLET ONE (03:28)
[2021-08-21] MEDS: FERROUS SO4 325 MG TABLET (FP) PO SCH (07:10)
[2021-08-21] MEDS: PRENATAL VITAMINS W/ FOLIC ACID TABLET (FP) PO SCH (09:50)
[2021-08-21] MEDS: PANTOPRAZOLE 40 MG TABLET PO SCH (09:50)
[2021-08-21] MEDS: NICOTINE 14 MG/24 HOURS TOPICAL PATCH TD SCH (09:50)
[2021-08-21] MEDS: THIAMINE HCL 100 MG TABLET (FP) PO SCH (22:09)
[2021-08-21] MEDS: MELATONIN 5 MG TABLETS PO SCH (22:09)
[2021-08-22] MEDS: FERROUS SO4 325 MG TABLET (FP) PO SCH ×3 (00:08→17:11)
[2021-08-22] MEDS ORDERED: methaDONE HCL 10 MG TABLET ONE (06:12)
[2021-08-22] MEDS ORDERED: methaDONE HCL 40 MG DISPERSABLE TABLET ONE (06:12)
[2021-08-22] MEDS: PRENATAL VITAMINS W/ FOLIC ACID TABLET (FP) PO SCH (10:42)
[2021-08-22] MEDS: NICOTINE 14 MG/24 HOURS TOPICAL PATCH TD SCH (10:42)
[2021-08-22] MEDS: PANTOPRAZOLE 40 MG TABLET PO SCH (10:42)
[2021-08-22] MEDS: THIAMINE HCL 100 MG TABLET (FP) PO SCH (21:39)
[2021-08-22] MEDS: MELATONIN 5 MG TABLETS PO SCH (21:39)
[2021-08-23] MEDS ORDERED: methaDONE HCL 10 MG TABLET ONE (03:49)
[2021-08-23] MEDS ORDERED: methaDONE HCL 40 MG DISPERSABLE TABLET ONE (03:49)
[2021-08-23] MEDS: FERROUS SO4 325 MG TABLET (FP) PO SCH (07:01)
[2021-08-23 07:21] VITALS: BP 118/80; PULSE 83; TEMP 97.7
[2021-08-23] MEDS: PRENATAL VITAMINS W/ FOLIC ACID TABLET (FP) PO SCH (09:30)
[2021-08-23] MEDS: NICOTINE 14 MG/24 HOURS TOPICAL PATCH TD SCH (09:30)
[2021-08-23] MEDS: PANTOPRAZOLE 40 MG TABLET PO SCH (09:30)
== END 2021-08-23 09:46 | disposition home or self-care (01) | DRG 895 ==
LOC: YASAS 21:54 → Y3E 07-26 02:04
PROVIDERS: ADMIT Allergy & Immunology; ATTEND Allergy & Immunology
PROC: HZ42ZZZ Group Counseling for Substance Abuse Treatment, Cognitive-Behavioral (ICD-10-PCS; principal; 2021-07-26)
DX: F11.20 Opioid dependence, uncomplicated (principal); F14.20 Cocaine dependence, uncomplicated; F13.20 Sedative, hypnotic or anxiolytic dependence, uncomplicated; F19.282 Other psychoactive substance dependence with psychoactive substance-induced sleep disorder; F10.20 Alcohol dependence, uncomplicated; F17.210 Nicotine dependence, cigarettes, uncomplicated; F19.24 Other psychoactive substance dependence with psychoactive substance-induced mood disorder; F31.9 Bipolar disorder, unspecified; F41.8 Other specified anxiety disorders; D50.9 Iron deficiency anemia, unspecified; J45.909 Unspecified asthma, uncomplicated; B18.2 Chronic viral hepatitis C
CPT/HCPCS: 36415; 80053; 81003; 85027; 86780; 93005; 93010; C9803; Q0162; U0003; U0005

== ENCOUNTER 2023-08-28 17:00 | Inpatient (IN) | payer OTHER ==
[2023-08-28 20:22] VITALS: BMI 24.4
[2023-08-28] MEDS ORDERED: ALBUTEROL SO4 HFA INHALER IH PRN (21:33)
[2023-08-28] MEDS ORDERED: NALOXONE HCL 0.4 MG/ML VIAL IM PRN (22:05)
[2023-08-28] MEDS ORDERED: NICOTINE POLACRILEX 2 MG GUM BUC PRN (22:05)
[2023-08-28] MEDS ORDERED: BENZOCAINE/MENTHOL (CHLORASEPTIC ) LOZENGE MM PRN (22:05)
[2023-08-28] MEDS ORDERED: BENZONATATE 200 MG CAPSULE PO PRN (22:05)
[2023-08-28] MEDS ORDERED: DOCUSATE SODIUM 100 MG CAPSULE (FP) PO PRN (22:05)
[2023-08-28] MEDS ORDERED: LOPERAMIDE HCL 2 MG CAPSULE PO PRN (22:05)
[2023-08-28] MEDS ORDERED: P-EPHED 60MG/TRIPROLIDI 2.5MG TABLET PO PRN (22:05)
[2023-08-28] MEDS ORDERED: MAGNESIUM HYDROX 2400MG/30ML ORAL SUSPENSION 30 ML CUP PO PRN (22:05)
[2023-08-28] MEDS ORDERED: MAG HYDROX/AL HYDROX/SIMETH 30 ML UNIT-DOSE CUP PO PRN (22:05)
[2023-08-28] MEDS ORDERED: NALOXONE HCL (KLOXXADO) 8 MG SPRAY NS PRN (22:05)
[2023-08-28] MEDS ORDERED: POLYETHYLENE GLYCOL (HEALTHYLAX) 3350 17 GM PACKET PO PRN (22:05)
[2023-08-28] MEDS ORDERED: guaiFENesin 600 MG TABLET.ER (FP) PO PRN (22:05)
[2023-08-28] MEDS ORDERED: IBUPROFEN 600 MG TABLET (FP) PO ONE (23:07)
[2023-08-28] MEDS ORDERED: MELATONIN 5 MG TABLETS ONE (23:31)
[2023-08-28] MEDS: MELATONIN 5 MG TABLETS PO SCH (23:32)
[2023-08-28] MEDS: IBUPROFEN 600 MG TABLET (FP) PO PRN (23:32)
[2023-08-29] MEDS: PRENATAL VITAMINS W/ FOLIC ACID TABLET (FP) PO SCH (09:51)
[2023-08-29] MEDS: methaDONE HCL 10 MG TABLET PO ONE (09:51)
[2023-08-29 15:20] LABS: CHLORIDE 107 mmol/L (98-107); POTASSIUM 3.7 mmol/L (3.5-5.1); SODIUM 143 mmol/L (136-145)
[2023-08-29 15:21] LABS: HEMATOCRIT 34.6 % (35.4-49); HEMOGLOBIN 11.3 GM/dL (11.7-16.9); MCH 26.3 pg (25.7-33.7); MCHC 32.7 g/dl (32.0-35.9); MEAN CELL VOLUME 80.3 fl (80-96); PLATELET COUNT 161 10^3/uL (134-434); RBC 4.31 M/mm3 (4.00-5.60); RDW 17.9 % (11.9-15.9); WHITE BLOOD COUNT 5.4 K/mm3 (4.0-10.0)
[2023-08-29 15:29] LABS: ANION GAP 6 mmol/L (4-13); BLOOD UREA NITROGEN 13.6 mg/dL (7-18); CALCIUM 9.6 mg/dL (8.5-10.1); CO2 29 mmol/L (21-32); GLUCOSE,RANDOM 117 mg/dL (74-106)
[2023-08-29 15:30] LABS: ALBUMIN 3.2 g/dl (3.4-5.0)
[2023-08-29 15:31] LABS: BILIRUBIN,TOTAL 0.4 mg/dL (0.2-1); SGPT/ALT 50 U/L (13-61)
[2023-08-29 15:32] LABS: ALK PHOS 281 U/L (45-117); CREATININE 0.7 mg/dL (0.55-1.3); SGOT/AST 21 U/L (15-37)
[2023-08-29 15:33] LABS: TOT PROT 7.4 g/dl (6.4-8.2)
[2023-08-29] MEDS: THIAMINE 100 MG TABLET PO SCH (21:02)
[2023-08-29] MEDS: MIRTAZAPINE 15 MG TABLET (FP) PO SCH (21:03)
[2023-08-30] MEDS: ACETAMINOPHEN 325 MG TABLET (FP) PO PRN (00:35)
[2023-08-30] MEDS: methaDONE HCL 40 MG DISPERSABLE TABLET PO ONE (06:13)
[2023-08-30 06:38] VITALS: TEMP 97.7
[2023-08-30 09:01] VITALS: BP 132/76; PULSE 66; RESP 16
[2023-08-30 11:05] LABS: URINE APPEARANCE CLEAR; URINE BILIRUBIN NEGATIVE (NEGATIVE); URINE COLOR YELLOW; URINE GLUCOSE (UA) NEGATIVE (NEGATIVE); URINE KETONE NEGATIVE (NEGATIVE); URINE LEUK ESTERASE NEGATIVE (NEGATIVE); URINE NITRITE NEGATIVE (NEGATIVE); URINE PROTEIN NEGATIVE (NEGATIVE)
[2023-08-30] MEDS: methaDONE HCL 10 MG TABLET PO ONE (13:47)
[2023-08-30] MEDS: BACITRACIN 0.9 GM PACKET TP SCH (13:47)
[2023-08-30] MEDS: BACLOFEN 10 MG TABLET (FP) PO SCH (13:47)
[2023-08-30] MEDS: IBUPROFEN 400 MG TABLET (FP) PO PRN (13:49)
[2023-08-30] MEDS ORDERED: SUVOREXANT 5 MG TABLET PO PRN (22:00)
[2023-08-30] MEDS ORDERED: MIRTAZAPINE 30 MG TABLET PO SCH (22:00)
[2023-08-31] MEDS ORDERED: methaDONE 40 MG, methaDONE 20 MG PO SCH (06:00)
[2023-08-31] MEDS ORDERED: methaDONE 40 MG, methaDONE 10 MG PO ONE (06:00)
[2023-08-31] MEDS ORDERED: methaDONE HCL 10 MG TABLET PO ONE (06:00)
[2023-09-01] MEDS ORDERED: methaDONE 40 MG, methaDONE 20 MG PO SCH (06:00)
[2023-09-01] MEDS ORDERED: methaDONE HCL 10 MG TABLET PO SCH (06:00)
== END 2023-08-30 16:25 | disposition left against medical advice (07) | DRG 894 ==
LOC: YASAS 17:00 → Y3NR 23:00 → Y3W 08-29 11:43
PROVIDERS: ADMIT Allergy & Immunology; ATTEND Psychiatry & Neurology Pain Medicine
PROC: HZ42ZZZ Group Counseling for Substance Abuse Treatment, Cognitive-Behavioral (ICD-10-PCS; principal; 2023-08-28)
DX: F11.20 Opioid dependence, uncomplicated (principal); F14.20 Cocaine dependence, uncomplicated; F19.282 Other psychoactive substance dependence with psychoactive substance-induced sleep disorder; F19.280 Other psychoactive substance dependence with psychoactive substance-induced anxiety disorder; L02.419 Cutaneous abscess of limb, unspecified; F17.210 Nicotine dependence, cigarettes, uncomplicated; F10.20 Alcohol dependence, uncomplicated; F31.9 Bipolar disorder, unspecified; E78.5 Hyperlipidemia, unspecified; G47.00 Insomnia, unspecified
CPT/HCPCS: 36415; 80053; 80305; 80307; 81003; 85027; 86780; 87635; 87811; J0475